=== PATIENT | female | born 1950 | race Caucasian/White ===

== ENCOUNTER 2023-11-17 15:47 | Emergency (ER) | payer MEDICARE, SELFPAY ==
[2023-11-17 15:48] VITALS: BP 110/88
[2023-11-17 15:52] VITALS: BP 110/88
[2023-11-17 15:56] VITALS: BMI 32.4
[2023-11-17 16:10] LABS: % Basophils 0.6 % (0-2); % Eosinophils 1.7 % (0-6); % Immature Granulocytes 0.3 % (0-0.5); % Monocytes 8.4 % (1.7-9.3); Absolute Basophils 0.1 10^3/uL (0-0.2); Absolute Eosinophils 0.2 10^3/uL (0-0.7); Absolute Lymphocytes 4.2 10^3/uL (1.2-3.4); Absolute Neutrophils 6.1 10^3/uL (1.4-6.5); Hematocrit 43.9 % (37.0-47.0); Hemoglobin 14.2 g/dL (12.0-16.0); Mean Corp Hgb Conc. 32.3 g/dL (33.0-37.0); Mean Corpuscular Hgb 26.9 pg (27.0-31.0); Mean Corpuscular Volume 83.3 fL (81.0-99.0); Mean Platelet Volume 10.3 fL (7.4-10.4); Nucleated Red Blood Cells % 0 %; Platelet Count 306 10^3/uL (130-400); Red Blood Cell Count 5.27 10^6/uL (4.20-5.40); Red Cell Dist. Width 13.2 % (11.5-14.5); White Blood Cell Count 11.6 10^3/uL (4.8-10.8)
--- NOTE | 2023-11-17 16:10 | ED.GENMED ---
History of Present Illness
General
Chief Complaint: Heart Rate Problem
Time Seen by Provider: 11/17/23 15:54
Travel History
Have you had any contact with someone who has COVID-19?: No
Do you have any symptoms of coronavirus? Fever > 100 degrees, chills, cough, shortness of breath, sore throat, loss of taste or smell, muscle aches, or headache?: No
History of Present Illness
History of Present Illness:
73-year-old female with history of hypertension and COPD presents to the emergency department for evaluation of sudden onset dizziness and heart palpitations beginning earlier today. She states she was seated on a phone call with family when the
symptoms began. She promptly called 911 and was identified to be in a narrow complex tachycardia by EMS. She was given initial dose of 6 mg of adenosine followed by 12 mg of adenosine with termination of the SVT. Patient does report 'hoarseness'
as well as mild dizziness currently. No history of cardiac dysrhythmias. Denies any recent medication changes or illicit substance use.
Past History
Past History
ED Past Medical History: Asthma, Cancer (Lung CA), COPD, GERD, HTN, NIDDM and Other (Trigeminal neuralgia, PNA, UTi)
ED Past Surgical History: Appendectomy, Cholecystectomy, Gynecological (Oophorectomy, Tubal) and Other (right upper lobe removed)
Social History
Tobacco: Former smoker
Alcohol: None
Personal:
Living: alone
Review of Systems
Review of Systems
Allergies reviewed?: Yes
All Other Systems: ROS reviewed and negative except as documented in HPI and ROS
Phy Exam
Physical Exam
Physical Exam:
GEN: Well appearing, NAD, WDWN
Eyes: PERRLA, EOMs intact, no scleral icterus
HENT: NCAT, oral mucosa moist, no JVD, no cervical adenopathy.
Lungs: Expiratory wheezing heard throughout all lung jain, no prolonged expiratory phase, no rales or rhonchi, normal respiratory effort
Cardiac: Mildly tachycardic, regular, no murmurs
Abdomen: S, NT, ND, NABS, no masses or hepatosplenomegaly
Neuro: AO x 3
MSK: No gross deformity or ecchymosis. No edema. No digital clubbing
Skin: No rashes, petechiae. Normal color, no pallor or jaundice.
Psych: Calm, cooperative, proper hygiene
Course
Orders/Labs/Results
Orders:
Orders
11/17/23 15:59
Complete Blood Count/With Diff Urgent
Comprehensive Metabolic Panel Urgent
Magnesium Urgent
Comment: ADD ON
11/17/23 16:10
Add On- LAB Urgent
Tests Added?: magnesium, TSH w reflex
11/17/23 16:12
Electrocardiogram (*1) Urgent
Reason for Study: Shortness of Breath
EKG- Treatment ONCE
11/17/23 18:02
CR Chest - 2 Views Urgent
Comment:
Reason For Exam: tachycardia
Abnormal Lab Results
11/17/23
15:59
WBC 11.6 H 10^3/uL
(4.8-10.8)
MCH 26.9 L pg
(27.0-31.0)
MCHC 32.3 L g/dL
(33.0-37.0)
Absolute Lymphs (auto) 4.2 H 10^3/uL
(1.2-3.4)
Absolute Monos (auto) 1.0 H 10^3/uL
(0.1-0.6)
Glucose 174 H mg/dl
(70-99)
Total Bilirubin 1.4 H mg/dl
(0.2-1.3)
11/17/23 15:59
11/17/23 15:59
Vital Signs
Initial and Last Documented VS:
Initial Vital Signs
Temp Pulse Resp BP Pulse Ox
98.3 F 114 29 110/88 98
11/17/23 15:48 11/17/23 15:48 11/17/23 15:48 11/17/23 15:48 11/17/23 15:48
Last Documented Vital Signs
Temp Pulse Resp BP Pulse Ox
98.3 F 90 29 115/56 99
11/17/23 15:48 11/17/23 19:00 11/17/23 19:00 11/17/23 19:00 11/17/23 18:55
MDM/Problems Addressed
MDM/Problems Addressed:
73-year-old female presents to the emergency department with dizziness and heart palpitations. She was found to be in a narrow complex tachycardia by EMS. My interpretation of this is suspicious for an SVT as it is quite regular however given the
fast rate it cannot be clearly discerned from a rapid 2-1 atrial flutter. The arrhythmia seem to terminate with adenosine. At this time given that does not clearly suggest an atrial fibrillation I do not feel it is appropriate to initiate
anticoagulants for this patient. She remained free of any further arrhythmias in the emergency department. Recommend outpatient cardiology follow-up
Comment
Comment:
Initial EKG independently interpreted by me shows sinus tachycardia with no ST changes concerning for ischemia, patient motion artifact limits interpretation
*Critical Care Note
Total Time (30-74mins, 75-104mins- exclusive of procedures): Not Applicable
ED Attending Note
-
Portions of this chart may have been created with voice recognition software.� Occasional wrong word or��sound alike� substitutions may have occurred due to the inherent limitations of voice recognition software.
Discharge Plan
Departure
Patient Disposition: Home (Routine Discharge)
Date of Disposition: 11/17/23
Time of Disposition: 18:48
Patient with high blood pressure during this ER visit?: No
Discharge Problem:
Paroxysmal supraventricular tachycardia
Instructions: Supraventricular tachycardia (SVT)
Prescriptions:
No Action
losartan 50 mg tablet
25 mg PO DAILY
cetirizine 10 mg tablet
10 mg PO HS PRN (Reason: ALLERGIES)
metoprolol succinate 50 mg tablet extended release 24 hr
50 mg PO DAILY
levothyroxine 50 mcg tablet
50 mcg PO DAILY
azelastine 137 mcg (0.1 %) aerosol,spray
1 spray INTRANASAL HS PRN (Reason: congestion)
albuterol sulfate 90 mcg/actuation HFA aerosol inhaler
2 puff INHALATION R Q6 PRN (Reason: sob/wheezing)
fluticasone propionate 50 mcg/actuation spray,suspension
2 spray INTRANASAL HS PRN (Reason: Allergies)
multivitamin Tablet
1 tab PO DAILY
cyanocobalamin (vitamin B-12) 1,000 mcg/mL Solution
1,000 mcg IM MONTHLY
estradiol 0.01 % (0.1 mg/gram) cream
2 g VAGINAL .3X WEEKLY
diazepam 5 mg tablet
5 mg PO HS PRN (Reason: anxiety/sleep)
Patient Comments:
11/17/2023: last filled 06/08/23, 30 tabs for 30 days from [facility]#[id number]
coenzyme Q10 [Co Q-10] 100 mg Capsule
100 mg PO DAILY
Victoza 2-Matthew 0.6 mg/0.1 mL (18 mg/3 mL) Pen Injector
1.2 mg SC DAILY Qty: 0
rizatriptan 10 mg tablet,disintegrating
10 mg PO PRN PRN (Reason: onset of headache)
glimepiride 4 mg tablet
4 mg PO DAILY
rosuvastatin 10 mg tablet
10 mg PO HS
duloxetine 20 mg capsule,delayed release(DR/EC)
20 mg PO DAILY
cholecalciferol (vitamin D3) [Vitamin D3] 25 mcg (1,000 unit) Tablet
25 mcg PO DAILY
pantoprazole [Protonix] 40 mg tablet,delayed release (DR/EC)
40 mg PO HS
Incruse Ellipta 62.5 mcg/actuation blister with device
1 inh inhalation R HS
Referrals:
Zuhair Fagan MD [Family Provider] -
Andrew Serrano MD [Active] -
Activity Restrictions/Additional Instructions:
Your EKG taken by the paramedics is suggestive of SVT. We cannot determine definitively that this was not atrial fibrillation
Please follow up with cardiology. At this time there is no need for any new medications given that you already taken metoprolol
Interventions
Interventions:
*Risk Screen - Suicide Last Done: 11/17/23 15:48
*General Assessment Last Done: 11/17/23 15:48
*Neglect/Abuse Screening Last Done: 11/17/23 15:48
ED- Fall Risk Assessment Last Done: 11/17/23 16:05
*ED COVID-19 Vaccine History Last Done: 11/17/23 15:48
*Nursing Disposition Last Done: 11/17/23 19:27
ED- Cardiac Assessment Last Done: 11/17/23 16:05
ED- Pulmonary Assessment Last Done: 11/17/23 16:05
Discharge Date and Time
Discharge Date/Time: 11/17/23 19:34
[2023-11-17 16:21] LABS: ALT (SGPT) 24 U/L (0-35); AST (SGOT) 32 U/L (14-36); Albumin 4.1 g/dl (3.5-5.0); Alkaline Phosphatase 59 U/L (38-126); Blood Urea Nitrogen 14 mg/dl (7-17); Calcium 9.9 mg/dl (8.4-10.2); Carbon Dioxide 27 mmol/L (22-30); Chloride 101 mmol/L (98-107); Estimated Creatinine Clearance 83 ml/min; Glucose 174 mg/dl (70-99); Potassium 4.1 mmol/L (3.5-5.1); Sodium 138 mmol/L (135-145); Total Bilirubin 1.4 mg/dl (0.2-1.3); Total Protein 6.7 g/dl (6.3-8.2); eGFR > 60.00
[2023-11-17 16:37] LABS: Magnesium 1.8 mg/dl (1.6-2.3)
[2023-11-17 17:00] VITALS: BP 105/73
[2023-11-17 18:35] VITALS: BP 97/63
[2023-11-17 19:00] VITALS: BP 115/56
== END 2023-11-17 19:34 | disposition home or self-care (01) ==
LOC: EMR 15:47
PROVIDERS: Physician Assistant; EMERGENCY PHYSICIAN Student in an Organized Health Care Education/Training Program; FAMILY PHYSICIAN Internal Medicine
DX: I47.19 Other supraventricular tachycardia (principal); Z87.891 Personal history of nicotine dependence
CPT/HCPCS: 99285; 71046; 80053; 83735; 85025; 93005

== ENCOUNTER → 2024-02-15 | Outpatient (REF) | payer MEDICARE, SELFPAY | LOC: DHSLP | PROVIDERS: ATTENDING PHYSICIAN Internal Medicine Critical Care Medicine; FAMILY PHYSICIAN Internal Medicine | DX: G47.33 Obstructive sleep apnea (adult) (pediatric) (principal) | CPT/HCPCS: 95800 ==

== ENCOUNTER 2024-05-15 02:16 | Emergency (ER) | payer MEDICARE, SELFPAY ==
[2024-05-15 02:16] VITALS: BMI 31.3
[2024-05-15 02:19] VITALS: BP 164/82
[2024-05-15 03:06] VITALS: BP 153/77
--- NOTE | 2024-05-15 03:10 | ED.GENMED ---
History of Present Illness
General
Chief Complaint: Breathing Problem
Source: patient
Exam Limitations: none
Time Seen by Provider: 05/15/24 02:44
Nursing documentation reviewed up to this point in time: agreed with
History of Present Illness
History of Present Illness:
This is a 73-year-old woman who resides at home, alone. She has history of COPD, hypertension, own-qjpeqqe-setmxirqu diabetes, GERD, hyperlipidemia, hypothyroidism, anxiety as well as UTIs.
She has history of recent COVID URI with onset of symptoms mid April. She tested positive for COVID-19 May 02 and at that time had had ongoing symptoms for 5 to 6 days. She has noted a continued cough, overall improving during the day but
continues with cough most noted at nighttime when she lies down associated with a sense of mucus in the back of her throat which then causes a sense of panic/anxiety and difficulty sleeping. Nocturnal cough, mucus, shortness of breath and anxiety
has worsened over the past 3 days. She has not had a fever, no leg pain or swelling, no palpitations, no nausea nor vomiting, no dizziness nor lightheadedness.
She did note some right sided chest discomfort a few days ago and mentioned this to her terrazzo installer during brief office visit May 10. That right sided chest discomfort has since resolved.
She presented to urgent care on Tuesday, May 13 with UTI symptoms, diagnosed with a UTI and was started on Macrobid May 13.
She is unsure if Macrobid is cause for her symptoms however does admit that cough, shortness of breath at nighttime began prior to initiation of Macrobid. She has not had a rash nor itching and admits to feeling improved during the day.
She does have a history of obstructive sleep apnea, she states sleep study showed moderate obstructive sleep apnea but has yet to initiate CPAP treatment.
She has been using her nebulizer treatment at nighttime as well as Mucinex without relief.
Home medications include: Incruse Ellipta, Victoza, glimepiride, Protonix, vaginal estradiol cream, metformin, levothyroxine, metoprolol succinate, duloxetine, losartan, DuoNeb nebulizer, as needed meclizine, vitamin D. Macrobid began May 13
5-day course.
Past History
Past History
ED Past Medical History: Asthma, Cancer (Lung CA-carcinoid, right upper lobe resection), COPD, GERD, HTN, NIDDM and Other (Trigeminal neuralgia, PNA, UTi)
ED Past Surgical History: Appendectomy, Bowel resection (Sigmoidectomy), Cholecystectomy, Gynecological (Oophorectomy, Tubal) and Other (right upper lobe removed)
Social History
Tobacco: Former smoker
Alcohol: None
Personal:
Living: alone
Employment: Retired
Family History
Family History: Other (Noncontributory)
Review of Systems
Review of Systems
Constitutional: Reports sleep disturbance; Denies fever, weight gain or weight loss
EENT: Reports other (Nasal congestion, postnasal drip most noted at nighttime); Denies sore throat
Respiratory: Reports cough and trouble breathing
Cardiac: Denies diaphoresis, palpitations or syncope
ABD/GI: Reports abdominal pain (Chronic generalized upper abdominal pain, and ongoing issue status post sigmoidectomy, unchanged.); Denies nausea, vomiting, diarrhea or constipated
: Reports other (Recent UTI diagnosed a temper first, UTI symptoms have resolved); Denies dysuria, frequency, flank pain or urgency
Musculoskeletal: Denies neck pain or back pain
Skin: Denies rash
Neurological: Denies headache
Psychiatric: Reports anxiety; Denies depression, suicidal or hallucinations
Phy Exam
Physical Exam
Physical Exam:
GENERAL: 73-year-old woman appears her stated age, awake and alert, pleasant, mildly anxious but easily communicative. Lying Semi-M[employer]artney's on stretcher. No cough appreciated during exam. No respiratory distress. Able to speak in full sentences.
EYE: anicteric
NECK: Supple, nontender, no meningismus, no significant adenopathy.
ENT: posterior pharynx is without injection, scant clear postnasal drip is noted, oral mucosa is moist. TM clear b/l, nares with mildly boggy pale blue turbinates with mild clear rhinorrhea.
CARDIAC: Regular rate and rhythm. no murmur.
LUNGS: no acute respiratory distress, few scattered end expiratory wheezes most noted with forced expiration. Otherwise clear to auscultation.
ABDOMEN: Rotund, soft, nondistended, minimal tenderness generalized to the upper abdomen with deep palpation only, no r/g, no cvat. normoactive BS.
NEUROLOGICAL: Alert and oriented x3, no focal neuro deficits. Gait is steady.
SKIN: Warm and dry, normal color, skin intact. No rash.
MUSCULOSKELETAL: No C/C/E. peripheral pulses are full and equal b/l. No palpable tenderness.
PSYCH: Normal and appropriate interaction.
Scores
Heart Failure Risk
Heart Failure Risk Score: Yes
History of Stroke or TIA: No
History of intubation for respiratory distress: No
Heart rate on ED arrival >/= 110: No
SaO2 <90% on arrival on room air: No
HR >/=110 during 3min walk test (or too ill to perform test): No
ECG has acute ischemic changes: No
Urea >/=12mmol/L (BUN 33.6mg/dL): No
Serum CO2>/=35mmol/L: No
Troponin I or T elevated to [place] Level (0.4mg/dL): No
NT-proBNP >/=5,000ng/L (5,000pg/ml): No
HF Risk Score: 0
Admission Status: LOW RISK 2.8% Consider discharge to home with f/u visit to PCP/Hot Knife Cutter
Course
Orders/Labs/Results
Orders:
Orders
05/15/24 02:50
Electrocardiogram (*1) Urgent
Reason for Study: Other
Other Reason for Exam: Respiratory Distress
Cardiac Monitoring- Treatment ONCE
EKG- Treatment ONCE
IV Insert/Care/Rem.- Treatment PRN
CR Chest - 2 Views Urgent
Comment:
Reason For Exam: respiratory distress
Pulse Ox/cont/shift [RESP] Urgent
Quantity: 1
Special Instructions: continuous pulse ox
05/15/24 02:52
Complete Blood Count/With Diff Urgent
Comprehensive Metabolic Panel Urgent
05/15/24 03:02
D-Dimer Urgent
NT-proBNP Urgent
Troponin I Urgent
05/15/24 04:04
Ipratropium/Albuterol Sulfate [Duoneb] 3 ml .ROUTE .STK-MED ONE
05/15/24 04:06
Ipratropium/Albuterol Sulfate [Duoneb] 3 ml INH R NOW ONE
05/15/24 04:39
CT Chest Pe Study Urgent
Comment:
Reason For Exam: SOB, elevated d-dimer
05/15/24 04:47
Lorazepam [Ativan] 0.5 mg IV NOW STA
05/15/24 05:57
Dexamethasone Sod Phosphate [Decadron] 10 mg IV NOW STA
Abnormal Lab Results
05/15/24 05/15/24
02:52 03:02
RBC 4.19 L 10^6/uL
(4.20-5.40)
Hgb 10.7 L g/dL
(12.0-16.0)
Hct 32.8 L %
(37.0-47.0)
MCV 78.3 L fL
(81.0-99.0)
MCH 25.5 L pg
(27.0-31.0)
MCHC 32.6 L g/dL
(33.0-37.0)
Absolute Monos (auto) 0.8 H 10^3/uL
(0.1-0.6)
D-Dimer 0.61 H ug/mlFEU
(0.00-0.50)
Creatinine 0.5 L mg/dL
(0.6-1.0)
Glucose 180 H mg/dl
(70-99)
AST 40 H U/L
(14-36)
05/15/24 02:52
05/15/24 02:52
Vital Signs
Initial and Last Documented VS:
Initial Vital Signs
Temp Pulse Resp BP Pulse Ox
98.1 F 85 20 164/82 99
05/15/24 02:19 05/15/24 02:19 05/15/24 02:19 05/15/24 02:19 05/15/24 02:19
Last Documented Vital Signs
Temp Pulse Resp BP Pulse Ox
98.1 F 85 17 153/77 98
05/15/24 02:19 05/15/24 04:30 05/15/24 04:30 05/15/24 03:06 05/15/24 04:30
MDM/Problems Addressed
Differential Diagnosis Includes:
Concern for exacerbation of COPD, persistent cough status post COVID URI 2-1/2 weeks ago. Concern for CHF, ACS.
With recent COVID URI must also consider PE as well.
Will check labs including troponin, BNP, D-dimer. Will check EKG.
Will consider imaging depending on results.
Chronic conditions affecting care: DM, HTN, COPD, Previous abdomnial surgery and Psychiatric illness (History of anxiety)
*Pulse Oximetry
Patient hypoxic: no
*EKG
Interpreted by ED Provider?: Yes
Interpretation: normal
Comparison EKG: no changes (Unchanged from previous November 2023 save her heart rate has decreased from 114 to now 80.)
Rate: normal
Rhythm: sinus
[place]: normal axis
Interval: normal interval
QRS Pattern: normal QRS
Ischemia: no ischemia
*Quilting Machine Operator Interpretation
Rate: normal
Interpretation: normal
Rhythm: sinus
*Critical Care Note
Total Time (30-74mins, 75-104mins- exclusive of procedures): Not Applicable
Update Note
Update Note:
05/15/2024 0448 AM
Patient continues with moderate anxiety which she admits has been an ongoing issue as well as chronic issue with difficulty sleeping.
Had been previously prescribed Valium from prior family doctor but last prescription was a year ago.
Labs thus far reveal normal white blood cell count, mild anemia, unremarkable chemistries save for random glucose 180. Troponin is negative. BNP is unremarkable at 425.
D-dimer mildly elevated at 0.61. With complaints of dyspnea, intermittent right chest discomfort will check CT of the chest/PE study.
Will give an IV dose of Ativan for anxiety.
She continues to have no significant respiratory distress, no significant cough, pulse ox is normal.
She is requesting her prescription for a sleep aid but I have recommended she follow-up with the PCP did discuss ongoing sleep difficulty. I do suspect she may have a mild exacerbation of COPD with recent COVID URI and may need a short course of
oral steroids. As far as sleep medication recommend she follow-up with the PCP and she states she has an appointment with a new PCP in the future.
05/15/2024 0601 AM
CAT scan shows no evidence of PE. Mild peripheral groundglass opacity concerning for inflammatory versus atypical infectious process. This could be related to recent COVID-19 URI. She remains afebrile. Normal white blood cell count.
Resting comfortably after small IV dose of Ativan.
Will treat exacerbation of COPD with short course of prednisone and recommend she continue her albuterol nebulizer every 4 hours as needed.
Recommend humidifier or vaporizer at nighttime, elevating head of bed, can continue Mucinex as needed for cough as well.
Patient has known obstructive sleep apnea and chronic issues with insomnia and she has been urged to follow-up with her terrazzo installer for further evaluation of her sleep issues and obstructive sleep apnea. She has been resistant to CPAP but I have
encouraged her to reconsider this.
Recommend she follow-up with her new PCP as already planned as well.
ED Attending Note
-
Portions of this chart may have been created with voice recognition software.� Occasional wrong word or��sound alike� substitutions may have occurred due to the inherent limitations of voice recognition software.
Discharge Plan
Departure
Patient Disposition: Home (Routine Discharge)
Date of Disposition: 05/15/24
Time of Disposition: 05:59
Patient with high blood pressure during this ER visit?: No
Condition: Good
Discharge Problem:
Acute exacerbation of chronic obstructive pulmonary disease, Recent covid 19 URI, EYAL (obstructive sleep apnea), Chronic insomnia
Instructions: Sleep apnea in adults, Insomnia, Chronic obstructive pulmonary disease (COPD), Good sleep hygiene
Prescriptions:
New
prednisone 20 mg tablet
40 mg PO DAILY Qty: 10 0RF
No Action
losartan 50 mg tablet
25 mg PO DAILY
cetirizine 10 mg tablet
10 mg PO HS PRN (Reason: ALLERGIES)
metoprolol succinate 50 mg tablet extended release 24 hr
50 mg PO DAILY
levothyroxine 50 mcg tablet
50 mcg PO DAILY
azelastine 137 mcg (0.1 %) aerosol,spray
1 spray INTRANASAL HS PRN (Reason: congestion)
albuterol sulfate 90 mcg/actuation HFA aerosol inhaler
2 puff INHALATION R Q6 PRN (Reason: sob/wheezing)
fluticasone propionate 50 mcg/actuation spray,suspension
2 spray INTRANASAL HS PRN (Reason: Allergies)
multivitamin Tablet
1 tab PO DAILY
cyanocobalamin (vitamin B-12) 1,000 mcg/mL Solution
1,000 mcg IM MONTHLY
estradiol 0.01 % (0.1 mg/gram) cream
2 g VAGINAL .3X WEEKLY
diazepam 5 mg tablet
5 mg PO HS PRN (Reason: anxiety/sleep)
Patient Comments:
11/17/2023: last filled 06/08/23, 30 tabs for 30 days from [facility]#[id number]
coenzyme Q10 [Co Q-10] 100 mg Capsule
100 mg PO DAILY
Victoza 2-Matthew 0.6 mg/0.1 mL (18 mg/3 mL) Pen Injector
1.2 mg SC DAILY Qty: 0
rizatriptan 10 mg tablet,disintegrating
10 mg PO PRN PRN (Reason: onset of headache)
glimepiride 4 mg tablet
4 mg PO DAILY
rosuvastatin 10 mg tablet
10 mg PO HS
duloxetine 20 mg capsule,delayed release(DR/EC)
20 mg PO DAILY
cholecalciferol (vitamin D3) [Vitamin D3] 25 mcg (1,000 unit) Tablet
25 mcg PO DAILY
pantoprazole [Protonix] 40 mg tablet,delayed release (DR/EC)
40 mg PO HS
Incruse Ellipta 62.5 mcg/actuation blister with device
1 inh inhalation R HS
Referrals:
Diogenes Gant MD [Active] - Call in 1-3 days for appt
Kingsley Goetz MD [Family Provider] - Call in 1-3 days for appt
Interventions
Interventions:
*Risk Screen - Suicide Last Done: 05/15/24 02:19
*General Assessment Last Done: 05/15/24 02:19
*Neglect/Abuse Screening Last Done: 05/15/24 02:19
ED- Fall Risk Assessment Last Done: 05/15/24 02:19
*ED COVID-19 Vaccine History Last Done: 05/15/24 02:19
ED- Cardiac Assessment Last Done: 05/15/24 02:59
ED- Pulmonary Assessment Last Done: 05/15/24 02:59
Discharge Date and Time
Print Language: FRENCH
[2024-05-15 03:18] LABS: % Basophils 0.3 % (0-2); % Eosinophils 2.4 % (0-6); % Immature Granulocytes 0.5 % (0-0.5); % Lymphocytes 24.5 % (20.5-51.1); % Monocytes 9.3 % (1.7-9.3); Absolute Eosinophils 0.2 10^3/uL (0-0.7); Absolute Lymphocytes 2.1 10^3/uL (1.2-3.4); Absolute Monocytes 0.8 10^3/uL (0.1-0.6); Absolute Neutrophils 5.5 10^3/uL (1.4-6.5); Hematocrit 32.8 % (37.0-47.0); Hemoglobin 10.7 g/dL (12.0-16.0); Mean Corp Hgb Conc. 32.6 g/dL (33.0-37.0); Mean Corpuscular Hgb 25.5 pg (27.0-31.0); Mean Corpuscular Volume 78.3 fL (81.0-99.0); Mean Platelet Volume 10.1 fL (7.4-10.4); Nucleated Red Blood Cells % 0 %; Platelet Count 318 10^3/uL (130-400); Red Blood Cell Count 4.19 10^6/uL (4.20-5.40); White Blood Cell Count 8.8 10^3/uL (4.8-10.8)
[2024-05-15 03:30] LABS: ALT (SGPT) 31 U/L (0-35); AST (SGOT) 40 U/L (14-36); Albumin 3.8 g/dl (3.5-5.0); Alkaline Phosphatase 70 U/L (38-126); Blood Urea Nitrogen 9 mg/dl (7-17); Calcium 9.8 mg/dl (8.4-10.2); Carbon Dioxide 26 mmol/L (22-30); Chloride 104 mmol/L (98-107); Estimated Creatinine Clearance 95 ml/min; Glucose 180 mg/dl (70-99); Potassium 4.6 mmol/L (3.5-5.1); Sodium 142 mmol/L (135-145); Total Bilirubin 0.8 mg/dl (0.2-1.3); Total Protein 6.3 g/dl (6.3-8.2); eGFR > 60.00
[2024-05-15 03:40] LABS: NT-proBNP 425 pg/ml; Troponin I < 0.012 ng/ml
[2024-05-15 03:58] LABS: D-Dimer 0.61 ug/mlFEU (0.00-0.50)
[2024-05-15] MEDS: DUONEB 3 ML INH (04:06)
[2024-05-15] MEDS: ATIVAN 0.5 MG IV (04:58)
[2024-05-15 05:19] VITALS: BP 124/72
--- NOTE | 2024-05-15 05:30 | EDRN ---
After ativan was given, pt. fell asleep. When asleep, pt.'s pulse ox. dropped to 85% on RA, when awoken by RN, pt.'s pulse ox. rises to 97% on RA. When awake, pt. is not hypoxic. Pt. states, 'I know I have sleep apnea. I need one of those bipap
masks, but I have not followed up because I won't use that.'. RN encouraged pt. to follow up w/ primary/dyeing machine back tender, reviewed risks of sleep apnea. Pt. vocalized understanding.
[2024-05-15] MEDS: DECADRON 10 MG IV (06:19)
[2024-05-15 06:25] VITALS: BP 118/70
== END 2024-05-15 07:04 | disposition home or self-care (01) ==
LOC: EMR 02:16
PROVIDERS: EMERGENCY PHYSICIAN Emergency Medicine; FAMILY PHYSICIAN Student in an Organized Health Care Education/Training Program
DX: J44.1 Chronic obstructive pulmonary disease with (acute) exacerbation (principal); J06.9 Acute upper respiratory infection, unspecified; G47.33 Obstructive sleep apnea (adult) (pediatric); F51.04 Psychophysiologic insomnia; F41.9 Anxiety disorder, unspecified; I10 Essential (primary) hypertension; E11.9 Type 2 diabetes mellitus without complications; K21.9 Gastro-esophageal reflux disease without esophagitis; E78.5 Hyperlipidemia, unspecified; E03.9 Hypothyroidism, unspecified; K57.90 Diverticulosis of intestine, part unspecified, without perforation or abscess without bleeding; M19.90 Unspecified osteoarthritis, unspecified site; G50.0 Trigeminal neuralgia; Z79.84 Long term (current) use of oral hypoglycemic drugs; Z87.440 Personal history of urinary (tract) infections; Z86.16 Personal history of COVID-19; Z85.118 Personal history of other malignant neoplasm of bronchus and lung; Z87.891 Personal history of nicotine dependence; Z87.01 Personal history of pneumonia (recurrent); Z90.2 Acquired absence of lung [part of]; Z90.49 Acquired absence of other specified parts of digestive tract; Z98.0 Intestinal bypass and anastomosis status
CPT/HCPCS: 99285; 94640; 96374; 96375; 71046; 71275; 80053; 83880; 84484; 85025; 85379; 93005; Q9967

== ENCOUNTER → 2024-10-17 10:14 | Outpatient (REF) | payer MEDICARE, SELFPAY | LOC: RCS 10:14 | PROVIDERS: ATTENDING PHYSICIAN Student in an Organized Health Care Education/Training Program; REFERRING PHYSICIAN Internal Medicine Cardiovascular Disease | DX: R00.2 Palpitations (principal) | CPT/HCPCS: 93225; 93226 ==

== ENCOUNTER → 2024-12-04 13:51 | Outpatient (REF) | payer MEDICARE, SELFPAY ==
[2024-12-04 16:02] LABS: % Basophils 0.5 % (0-2); % Eosinophils 1.9 % (0-6); % Immature Granulocytes 0.4 % (0-0.5); % Lymphocytes 32.3 % (20.5-51.1); % Monocytes 7.7 % (1.7-9.3); % Neutrophils 57.2 % (42.2-75.2); Absolute Basophils 0.1 10^3/uL (0-0.2); Absolute Eosinophils 0.2 10^3/uL (0-0.7); Absolute Lymphocytes 3.4 10^3/uL (1.2-3.4); Absolute Monocytes 0.8 10^3/uL (0.1-0.6); Absolute Neutrophils 5.9 10^3/uL (1.4-6.5); Hematocrit 43.1 % (37.0-47.0); Hemoglobin 13.9 g/dL (12.0-16.0); Mean Corp Hgb Conc. 32.3 g/dL (33.0-37.0); Mean Corpuscular Hgb 27.7 pg (27.0-31.0); Mean Corpuscular Volume 85.9 fL (81.0-99.0); Mean Platelet Volume 10.2 fL (7.4-10.4); Nucleated Red Blood Cells % 0 %; Platelet Count 257 10^3/uL (130-400); Red Blood Cell Count 5.02 10^6/uL (4.20-5.40); Red Cell Dist. Width 15.4 % (11.5-14.5); White Blood Cell Count 10.4 10^3/uL (4.8-10.8)
[2024-12-04 16:05] LABS: Ionized Calcium 1.28 mMOL/L (1.15-1.33)
[2024-12-04 16:21] LABS: Erythrocyte Sed Rate 2 mm/hour (0-20)
[2024-12-04 16:23] LABS: Calcium 10.4 mg/dl (8.4-10.2); Iron 63 ug/dl (37-170); Uric Acid 5.8 mg/dl (2.5-6.2)
[2024-12-04 16:24] LABS: C-Reactive Protein < 5.00 mg/L (0.0-10.00)
[2024-12-04 16:25] LABS: Urine Albumin Negative (Neg - Trace); Urine Bilirubin Negative (Negative); Urine Character Clear (Clear); Urine Color Yellow; Urine Glucose Negative (Negative); Urine Ketone Negative (Negative); Urine Leukocyte 1+ (Negative); Urine Nitrite Negative (Negative); Urine Occult Blood Negative (Negative); Urine Urobilinogen Negative (Neg - 1+)
[2024-12-04 16:25] LABS: Protein/creatinine Ratio 0.1; Urine Protein 7 mg/dl
[2024-12-04 16:32] LABS: Percent Saturation 18 % (20-50); Total Iron Binding Capacity 344 ug/dl (265-497)
[2024-12-04 16:32] LABS: Urine Bacteria Moderate (Negative); Urine Red Blood Cell 0-2 /HPF (0-2); Urine Squamous Cell >30 /LPF (Few)
[2024-12-04 16:34] LABS: Complement C3 145 mg/dl (88-165)
[2024-12-04 17:44] LABS: Ferritin 19.3 ng/ml (11.1-264.0)
[2024-12-05 08:54] LABS: Intact PTH 61.2 pg/ml (13.6-85.8)
[2024-12-05 10:25] LABS: Glycohemoglobin (HgbA1c) 6.8 % (4.0-5.6)
[2024-12-05 15:02] LABS: Rheumatoid Agglutinin Less Than 10 IU (<10 IU)
[2024-12-06 06:08] LABS: Thyroid Peroxidase Ab (TPO) 0.3 IU/mL (0.0-9.0)
[2024-12-06 06:22] LABS: Thyroglobulin 19.2 ng/mL (1.3-31.8); Thyroglobulin Antibodies <1.5 IU/mL (0.0-4.0)
[2024-12-06 18:29] LABS: Cardiolipin IgA Antibody <10 APL (<=11); Cardiolipin IgM Antibody <10 MPL (<=12); Cardiolipin Igg Antibody <10 GPL (<=14)
[2024-12-06 18:36] LABS: Beta-2-Glycoprotein I Ab. IgG <10 SGU (<=20); Beta-2-Glycoprotein I Ab. IgM <10 SMU (<=20)
[2024-12-06 20:20] LABS: ANA, IgG Reflex to HEp-2 None Detected (None Detected)
[2024-12-06 21:10] LABS: CCP Antibody IgG/IgA 40 Units (0-19)
[2024-12-06 22:43] LABS: SSA 52 (Ro)(ENA) Ab, IgG 3 AU/mL (0-40); SSA 60 (Ro)(ENA) Ab, IgG 0 AU/mL (0-40); SSB (La)(ENA) Ab, IgG 0 AU/mL (0-40)
== END ==
LOC: RCS 13:51
PROVIDERS: ATTENDING PHYSICIAN Internal Medicine Cardiovascular Disease; FAMILY PHYSICIAN Student in an Organized Health Care Education/Training Program; REFERRING PHYSICIAN Student in an Organized Health Care Education/Training Program
DX: R06.02 Shortness of breath (principal); I47.10 Supraventricular tachycardia, unspecified; C34.90 Malignant neoplasm of unspecified part of unspecified bronchus or lung; I62.9 Nontraumatic intracranial hemorrhage, unspecified; E07.9 Disorder of thyroid, unspecified; I73.00 Raynaud's syndrome without gangrene; K21.9 Gastro-esophageal reflux disease without esophagitis; M25.50 Pain in unspecified joint; M25.60 Stiffness of unspecified joint, not elsewhere classified; R21 Rash and other nonspecific skin eruption; R53.83 Other fatigue; R76.8 Other specified abnormal immunological findings in serum; Z82.69 Family history of other diseases of the musculoskeletal system and connective tissue; E11.9 Type 2 diabetes mellitus without complications; E61.1 Iron deficiency; E78.2 Mixed hyperlipidemia; Z51.81 Encounter for therapeutic drug level monitoring
CPT/HCPCS: 36415; 81003; 81015; 82330; 82570; 82728; 83036; 83540; 83550; 83970; 84155; 84156; 84165; 84432; 84550; 85025; 85610; 85613; 85652; 85730; 86038; 86140; 86146; 86147; 86160; 86200; 86235; 86376; 86430; 86800; 93306

== ENCOUNTER → 2024-12-07 07:48 | Outpatient (REF) | payer MEDICARE, SELFPAY ==
[2024-12-06 10:01] LABS: ALT (SGPT) 32 U/L (0-35); AST (SGOT) 32 U/L (14-36); Albumin 4.1 g/dl (3.5-5.0); Alkaline Phosphatase 68 U/L (38-126); Blood Urea Nitrogen 13 mg/dl (7-17); Calcium 10.2 mg/dl (8.4-10.2); Carbon Dioxide 30 mmol/L (22-30); Chloride 104 mmol/L (98-107); Glucose 168 mg/dl (70-99); HDL Cholesterol 38 mg/dl; Potassium 5.4 mmol/L (3.5-5.1); Sodium 140 mmol/L (135-145); Total Bilirubin 0.8 mg/dl (0.2-1.3); Total Cholesterol 227 mg/dl (50-199); Total Protein 6.8 g/dl (6.3-8.2); eGFR > 60.00
[2024-12-06 10:12] LABS: Triglyceride > 400 mg/dl (10-149)
[2024-12-06 10:37] LABS: LDL Cholesterol, Direct 113 mg/dl
== END ==
LOC: RAD 07:48
PROVIDERS: ATTENDING PHYSICIAN Student in an Organized Health Care Education/Training Program
DX: Z13.820 Encounter for screening for osteoporosis (principal)
CPT/HCPCS: 36415; 77080; 80053; 80061; 83721

== ENCOUNTER → 2024-12-12 13:59 | Outpatient (REF) | payer MEDICARE, SELFPAY | LOC: RAD 13:59 | PROVIDERS: ATTENDING PHYSICIAN Student in an Organized Health Care Education/Training Program; FAMILY PHYSICIAN Student in an Organized Health Care Education/Training Program | DX: C34.90 Malignant neoplasm of unspecified part of unspecified bronchus or lung (principal); E07.9 Disorder of thyroid, unspecified; I73.00 Raynaud's syndrome without gangrene; K21.9 Gastro-esophageal reflux disease without esophagitis; M25.50 Pain in unspecified joint; M25.60 Stiffness of unspecified joint, not elsewhere classified; R21 Rash and other nonspecific skin eruption; R53.83 Other fatigue; R76.8 Other specified abnormal immunological findings in serum; Z82.69 Family history of other diseases of the musculoskeletal system and connective tissue | CPT/HCPCS: 73110; 73120; 73610 ==

== ENCOUNTER → 2025-01-30 13:47 | Outpatient (REF) | payer MEDICARE, SELFPAY | LOC: HWRAD 13:47 | PROVIDERS: ATTENDING PHYSICIAN Student in an Organized Health Care Education/Training Program | DX: M54.2 Cervicalgia (principal) | CPT/HCPCS: 76536 ==

== ENCOUNTER → 2025-02-11 10:04 | Outpatient (REF) | payer MEDICARE, SELFPAY ==
[2025-02-11 12:50] LABS: Free T4 1.35 ng/dl (0.78-2.19)
[2025-02-11 12:56] LABS: Glycohemoglobin (HgbA1c) 7.4 % (4.0-5.6)
[2025-02-11 13:05] LABS: TSH 1.09 uIU/ml (0.47-4.68)
[2025-02-11 13:08] LABS: Blood Urea Nitrogen 11 mg/dl (7-17); Calcium 9.9 mg/dl (8.4-10.2); Carbon Dioxide 23 mmol/L (22-30); Chloride 107 mmol/L (98-107); Glucose 137 mg/dl (70-99); HDL Cholesterol 44 mg/dl; LDL Cholesterol, Calculated 95 mg/dl; Sodium 140 mmol/L (135-145); Total Cholesterol 208 mg/dl (50-199); Triglyceride 347 mg/dl (10-149); Very Low Density Lipoprotein 69 mg/dl (0-30); eGFR > 60.00
[2025-02-11 13:23] LABS: Vitamin B12 844 pg/ml (239-931)
== END ==
LOC: RCS 10:04
PROVIDERS: ATTENDING PHYSICIAN Student in an Organized Health Care Education/Training Program; FAMILY PHYSICIAN Student in an Organized Health Care Education/Training Program; OTHER PHYSICIAN Nurse Practitioner Family
DX: M25.60 Stiffness of unspecified joint, not elsewhere classified (principal); R52 Pain, unspecified; R76.8 Other specified abnormal immunological findings in serum; Z51.81 Encounter for therapeutic drug level monitoring; E11.65 Type 2 diabetes mellitus with hyperglycemia; E03.9 Hypothyroidism, unspecified
CPT/HCPCS: 36415; 80048; 80061; 82607; 83036; 84439; 84443; 93005

== ENCOUNTER → 2025-02-14 12:10 | Outpatient (REF) | payer MEDICARE, SELFPAY ==
[2025-02-14 13:06] LABS: 24 Hour Urine Total Volume 1800 ml
[2025-02-14 13:30] LABS: Microalbumin, Urine < 0.6 mg/dl (0.6-1.7)
== END ==
LOC: REG 12:10
PROVIDERS: ATTENDING PHYSICIAN Nurse Practitioner Family; FAMILY PHYSICIAN Student in an Organized Health Care Education/Training Program
DX: E11.65 Type 2 diabetes mellitus with hyperglycemia (principal); E03.9 Hypothyroidism, unspecified
CPT/HCPCS: 36415; 81050; 82043

== ENCOUNTER 2025-02-17 15:30 | Inpatient (IN) | payer MEDICARE, SELFPAY ==
[2025-02-17] VITALS (8 sets, daily range): BP systolic 98–156; BP diastolic 53–105; BMI 32.2
[2025-02-17 10:09] LABS: % Basophils 0.6 % (0-2); % Eosinophils 2.2 % (0-6); % Immature Granulocytes 0.4 % (0-0.5); % Monocytes 10.2 % (1.7-9.3); % Neutrophils 65.6 % (42.2-75.2); Absolute Basophils 0.1 10^3/uL (0-0.2); Absolute Eosinophils 0.2 10^3/uL (0-0.7); Absolute Immature Granulocytes 0.1 10^3/uL (0-0.05); Absolute Lymphocytes 2.3 10^3/uL (1.2-3.4); Absolute Monocytes 1.1 10^3/uL (0.1-0.6); Absolute Neutrophils 7.3 10^3/uL (1.4-6.5); Hemoglobin 14.1 g/dL (12.0-16.0); Mean Corp Hgb Conc. 35.3 g/dL (33.0-37.0); Mean Corpuscular Hgb 29.8 pg (27.0-31.0); Mean Corpuscular Volume 84.6 fL (81.0-99.0); Mean Platelet Volume 10.2 fL (7.4-10.4); Nucleated Red Blood Cells % 0 %; Platelet Count 221 10^3/uL (130-400); Red Blood Cell Count 4.73 10^6/uL (4.20-5.40); Red Cell Dist. Width 13.1 % (11.5-14.5); White Blood Cell Count 11.1 10^3/uL (4.8-10.8)
[2025-02-17 10:28] LABS: ALT (SGPT) 32 U/L (0-35); AST (SGOT) 28 U/L (14-36); Albumin 4.4 g/dl (3.5-5.0); Alkaline Phosphatase 60 U/L (38-126); Blood Urea Nitrogen 13 mg/dl (7-17); Calcium 10.4 mg/dl (8.4-10.2); Carbon Dioxide 22 mmol/L (22-30); Chloride 107 mmol/L (98-107); Glucose 234 mg/dl (70-99); Potassium 4.4 mmol/L (3.5-5.1); Sodium 138 mmol/L (135-145); Total Bilirubin 1.4 mg/dl (0.2-1.3); Total Protein 6.7 g/dl (6.3-8.2); eGFR > 60.00
[2025-02-17 10:38] LABS: Troponin I < 0.012 ng/ml
--- NOTE | 2025-02-17 11:48 | ED.GENMED ---
History of Present Illness
General
Chief Complaint: Breathing Problem
Source: patient
Exam Limitations: none
Time Seen by Provider: 02/17/25 11:29
History of Present Illness
History of Present Illness:
74-year-old female with history of COPD presents complaining of increased shortness of breath over the past 2 to 3 days. She also noted difficulty to breathe. Denies chest pain. No leg swelling. No fever. She denies any hemoptysis. No recent
surgery or travel. She is followed by pulmonology. She has been using her albuterol inhaler and nebulizer without significant relief.
Past History
Past History
ED Past Medical History: Asthma, Cancer (Lung CA-carcinoid, right upper lobe resection), COPD, GERD, HTN, NIDDM and Other (Trigeminal neuralgia, PNA, UTi)
ED Past Surgical History: Appendectomy, Bowel resection (Sigmoidectomy), Cholecystectomy, Gynecological (Oophorectomy, Tubal) and Other (right upper lobe removed)
Social History
Tobacco: Former smoker
Alcohol: None
Personal:
Living: alone
Employment: Retired
Family History
Family History: Other (Noncontributory)
Phy Exam
Physical Exam
Physical Exam:
General: Well-appearing female with increased work of breathing
HEENT normocephalic atraumatic
Heart: Regular rate and rhythm
Lungs: Mostly clear
Extremities: No cyanosis or edema
Skin: Warm no rash
Scores
Heart Failure Risk
Heart Failure Risk Score: Not Applicable
Course
Orders/Labs/Results
Orders:
Orders
02/17/25 09:52
Electrocardiogram (*1) Urgent
Reason for Study: Other
Other Reason for Exam: Respiratory Distress
EKG- Treatment ONCE
02/17/25 09:59
Complete Blood Count/With Diff Urgent
Comprehensive Metabolic Panel Urgent
Troponin I Urgent
02/17/25 11:37
Dexamethasone Sod Phosphate [Decadron] 10 mg IV NOW STA
Ipratropium/Albuterol Sulfate [Duoneb] 3 ml INH R NOW STA
CR Chest - 2 Views Urgent
Comment:
Reason For Exam: sob
02/17/25 14:11
COVID-19 Antigen Urgent
Source: Nasal Swab
Abnormal Lab Results
02/17/25
09:59
WBC 11.1 H 10^3/uL
(4.8-10.8)
Abs Immat Gran (auto) 0.1 H 10^3/uL
(0-0.05)
Absolute Neuts (auto) 7.3 H 10^3/uL
(1.4-6.5)
Absolute Monos (auto) 1.1 H 10^3/uL
(0.1-0.6)
Monocytes % 10.2 H %
(1.7-9.3)
Glucose 234 H mg/dl
(70-99)
Calcium 10.4 H mg/dl
(8.4-10.2)
Total Bilirubin 1.4 H mg/dl
(0.2-1.3)
02/17/25 09:59
02/17/25 09:59
Vital Signs
Initial and Last Documented VS:
Initial Vital Signs
Temp Pulse Resp BP Pulse Ox
98.3 F 101 22 156/104 99
02/17/25 09:49 02/17/25 09:49 02/17/25 09:49 02/17/25 09:49 02/17/25 09:49
Last Documented Vital Signs
Temp Pulse Resp BP Pulse Ox
98.3 F 88 19 98/84 96
02/17/25 09:49 02/17/25 13:00 02/17/25 12:30 02/17/25 13:00 02/17/25 13:00
MDM/Problems Addressed
Differential Diagnosis Includes:
Increased work of breathing with shortness of breath. Consider COPD flare versus bronchitis versus pneumonia versus heart failure
Patient is tachypneic on exam. Will try nebulizer x-ray pending labs pending steroids ordered
*Critical Care Note
Total Time (30-74mins, 75-104mins- exclusive of procedures): Not Applicable
Update Note
Update Note:
Patient reevaluated multiple times. Still with dyspnea and increased work of breathing. Chest x-ray is clear. She was placed on nasal cannula oxygen for comfort. Discussed with emergency room attending. Will admit for COPD flare
ED Attending Note
-
Portions of this chart may have been created with voice recognition software.� Occasional wrong word or��sound alike� substitutions may have occurred due to the inherent limitations of voice recognition software.
Discharge Plan
Departure
Patient Disposition: Admit
Date of Disposition: 02/17/25
Time of Disposition: 14:23
Presentation/result/management discussed w/ accepting MD/DO: Hospitalist
Discharge Problem:
Acute exacerbation of chronic obstructive pulmonary disease (COPD)
Prescriptions:
No Action
losartan 50 mg tablet
25 mg PO DAILY
cetirizine 10 mg tablet
10 mg PO HS PRN (Reason: ALLERGIES)
metoprolol succinate 50 mg tablet extended release 24 hr
50 mg PO DAILY
levothyroxine 50 mcg tablet
50 mcg PO DAILY
azelastine 137 mcg (0.1 %) aerosol,spray
1 spray INTRANASAL HS PRN (Reason: congestion)
albuterol sulfate 90 mcg/actuation HFA aerosol inhaler
2 puff INHALATION R Q6 PRN (Reason: sob/wheezing)
fluticasone propionate 50 mcg/actuation spray,suspension
2 spray INTRANASAL HS PRN (Reason: Allergies)
multivitamin Tablet
1 tab PO DAILY
cyanocobalamin (vitamin B-12) 1,000 mcg/mL Solution
1,000 mcg IM MONTHLY
estradiol 0.01 % (0.1 mg/gram) cream
2 g VAGINAL .3X WEEKLY
diazepam 5 mg tablet
5 mg PO HS PRN (Reason: anxiety/sleep)
Patient Comments:
11/17/2023: last filled 06/08/23, 30 tabs for 30 days from [id number]
coenzyme Q10 [Co Q-10] 100 mg Capsule
100 mg PO DAILY
Victoza 2-Matthew 0.6 mg/0.1 mL (18 mg/3 mL) Pen Injector
1.2 mg SC DAILY Qty: 0
rizatriptan 10 mg tablet,disintegrating
10 mg PO PRN PRN (Reason: onset of headache)
glimepiride 4 mg tablet
4 mg PO DAILY
rosuvastatin 10 mg tablet
10 mg PO HS
duloxetine 20 mg capsule,delayed release(DR/EC)
20 mg PO DAILY
cholecalciferol (vitamin D3) [Vitamin D3] 25 mcg (1,000 unit) Tablet
25 mcg PO DAILY
pantoprazole [Protonix] 40 mg tablet,delayed release (DR/EC)
40 mg PO HS
Incruse Ellipta 62.5 mcg/actuation blister with device
1 inh inhalation R HS
prednisone 20 mg tablet
40 mg PO DAILY Qty: 10 0RF
Referrals:
Kingsley Goetz MD [Family Provider, Family Practice]
Interventions
Interventions:
*Risk Screen - Suicide Last Done: 02/17/25 09:49
*General Assessment Last Done: 02/17/25 12:13
*Neglect/Abuse Screening Last Done: 02/17/25 09:49
*ED COVID-19 Vaccine History Last Done: 02/17/25 12:13
ED- Cardiac Assessment Last Done: 02/17/25 12:13
ED- Pulmonary Assessment Last Done: 02/17/25 12:13
Discharge Date and Time
Print Language: BELARUSIAN
[2025-02-17] MEDS: DUONEB 3 ML INH ×2 (12:15→20:10)
[2025-02-17] MEDS: DECADRON 10 MG IV (12:16)
--- NOTE | 2025-02-17 14:47 | W.PN.UPDATE ---
Update Note
Progress Note Update
This note serves as an addendum to the H&P by see supervisor JENELLE Danielle SORIANO
HPI
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
- shortness of breath over the past 2 to 3 days
She has been using her albuterol inhaler and nebulizer without significant relief.
- Denies chest pain. No leg swelling. No fever.
- denies any hemoptysis.
- No recent surgery or travel.
- followed by pulmonology.
Vital Signs
Temp Pulse Resp BP Pulse Ox
98.3 F 88 19 98/84 98
02/17/25 09:49 02/17/25 13:00 02/17/25 12:30 02/17/25 13:00 02/17/25 14:05
PE
Gen: anxious
HEENT: anicteric
Neck:supple neck. No JVD
Lungs: symmetric AE, BBS at Lt lung base , No wheeze
Cor: RRR S1 S2
Abdomen: soft benign
SIGN FABRICATOR: AAO3 NFND
MS:no edema
Psych: anxious but apprpriate
Admission Labs
02/17/25
09:59
WBC 11.1 H
Creatinine 0.6
eGFR > 60.00
Glucose 234 H
Calcium 10.4 H
Total Bilirubin 1.4 H
Troponin I < 0.012
CXR
No acute cardiopulmonary process
EKG
NORMAL SINUS RHYTHM
NONSPECIFIC T WAVE ABNORMALITY
ABNORMAL ECG
WHEN COMPARED WITH ECG OF 11-FEB-2025 10:29,
NO SIGNIFICANT CHANGE WAS FOUND
Confirmed by OLIVA NOVAK, DESMOND ([id number]) on 02/17/2025 1:59:01 PM
05/15/24 CT Chest PEStudy
- Examination is negative for pulmonary embolism.
- Patchy groundglass opacities within both lungs, which is most likely patchy pneumonia.
Given the clinical history and the appearance, this is most likely Covid pneumonia.
No evidence for associated pleural effusion.
- Mild to moderate elevation right hemidiaphragm.
- 4 mm subpleural nodule in the lateral right mid lung, stable, compatible with a benign pulmonary nodule.
- Status post partial right lung resection which appears to be right upper lobectomy.
- Stable 3 cm mass arising from the right adrenal gland, compatible with myelolipoma.
Last hospitalist admission: 12/13/23 - 01/06/24
Discharge Diagnosis/Procedures: Shortness of breath, ACUTE suspected chronic obstructive pulmonary disease exacerbation, Acute Bronchitis 2/2 above
ASSESSMENT & PLAN
Pending Rx reconciliation
Likely AE COPD with asthmatic element in view of more dyspneic than usual
No wheeze on my exam
Mild Leucocytosis but doubt bacterial infection
NEG Covid
NEG CXR
HX Asthma/COPD
Former smoker since 2003
HX s/p right upper lobectomy for right lung carcinoid tumor in 2003
- agree with IV Decadron 4mg q12h
- DuoNebs qid and PRN
- Hold ABx
- f/u POx
At risk for hyperglycemia due to IV Steroids
T2DM
- add ISS
- on Glimepiride
- on Liraglutide
Benign HTN
- Losartan, metoprolol
Hypothyroid
- LT4
HLD
- on Rosuvastatin
Anxiety/depression
- Duloxetine
HX RA
- recently started on Hydroxy chloroquine
HX 3cm mass Rt adrenal gland ; known per patient and no interval chage
DVT Px: SQH
Full code
IP TLM
[2025-02-17 14:52] LABS: COVID-19 Antigen Negative (Negative)
--- NOTE | 2025-02-17 15:14 | HPS.HSE ---
Family Physician
-
Family Physician: Kingsley Goetz MD
Chief Complaint
-
Cough and Shortness of Breath
History of Present Illness
Patient is a 74 y/o female past medical history of COPD, Diabetes, Hypertension, Hyperlipidemia, GERD, RA and Trigeminal Neuralgia who presents with cough and shortness of breath for the past 2-3 days. Patient reports she has been unable to sleep
due to frequent cough. She reports cough seems loose but she is unable to bring up any mucus. She has been using her home nebulizer without much improvement her symptoms. She denies fevers, sweats or chills. She denies chest pain or lower
extremity edema.
Medical History
Past Medical History
Past Medical History: Reports Other
Additional Past Medical History:
COPD
Diabetes Mellitus, Type II
Essential Hypertension
Hyperlipidemia
Hypothyroidism
GERD
Rheumatoid Arthritis
Trigeminal Neuralgia
Lung Carcinoid Tumor s/p RUL Lobectomy
Past Surgical History: Reports Other
Additional Past Surgical History:
Right Upper Lung Lobectomy
Cholecystectomy
Appendectomy
Sigmoidectomy
Social History
Tobacco: Former Smoker
Family History
Family History: Not pertinent
Allergies / Home Medications
Allergies reflects when Allergies were last updated in [facility].
Home Medications with original date entered in [facility]
Allergy/Medication List:
Allergies
Allergy/AdvReac Type Severity Reaction Status Date / Time
No Known Allergies Allergy Verified 02/17/25 09:48
Home Medications
albuterol sulfate 90 mcg/actuation aerosol inhaler 2 puff inhalation R Q6 PRN sob/wheezing 01/01/23
cyanocobalamin (vitamin B-12) 1,000 mcg/mL injection solution 1,000 mcg IM MONTHLY Supplement 01/01/23
estradiol 0.01% (0.1 mg/gram) vaginal cream 2 g vaginal .3X WEEKLY Hormonal agent 01/01/23
fluticasone propionate 50 mcg/actuation nasal spray,suspension 1 spray intranasal BID 01/01/23
levothyroxine 50 mcg tablet 50 mcg PO DAILY Transplant 01/01/23
liraglutide 0.6 mg/0.1 mL (18 mg/3 mL) subcutaneous pen injector (Victoza 2-Matthew) 1.2 mg SC DAILY Diabetes ##0 01/01/23
losartan 50 mg tablet 25 mg PO DAILY Blood pressure 01/01/23
duloxetine 20 mg capsule,delayed release 20 mg PO DAILY 11/17/23
rizatriptan 10 mg disintegrating tablet 10 mg PO PRN PRN onset of headache 11/17/23
umeclidinium 62.5 mcg/actuation blister powder for inhalation (Incruse Ellipta) 1 inh inhalation R HS 11/17/23
ezetimibe 10 mg tablet 10 mg PO DAILY 02/17/25
famotidine 40 mg tablet 40 mg PO DAILY 02/17/25
ferrous sulfate 325 mg (65 mg iron) tablet 325 mg PO DAILY 02/17/25
hydroxychloroquine 200 mg tablet 200 mg PO DAILY 02/17/25
metoprolol succinate 25 mg tablet,extended release 24 hr 25 mg PO BID 02/17/25
mometasone 0.1 % topical cream 1 applic topical BIDPRN PRN Rash 02/17/25
rabeprazole 20 mg tablet,delayed release 20 mg PO DAILY 02/17/25
Review of Systems
-
History Source: Patient
A 12 point ROS was completed and negative except as noted: Yes
Constitutional: Denies Fever or Chills
Respiratory: Reports Cough and Trouble Breathing
Cardiac: Denies Chest Pain
Physical Exam
Vital Signs
Vital Signs
Temp Pulse Resp BP Pulse Ox
98.3 F 93 18 103/76 99
02/17/25 09:49 02/17/25 15:00 02/17/25 15:00 02/17/25 15:00 02/17/25 15:00
Physical Exam
General: Well Developed and Well Nourished
HEENT: NormoCephalic, Anicteric, Moist mucous membranes and Atraumatic
Respiratory: Other (Tachypneic; Coarse breath sounds throughout)
Cardiac: S1/S2 and Regular Rhythm; No Murmur
GI: Soft, Non Tender, Non Distended and Normal Bowel Sounds
Rectal: Deferred by Provider
Musculoskeletal: No Clubbing, No Cyanosis and No Edema
Skin: Warm and Dry; No Rash
Neuro: Awake, Alert, Oriented and Nonfocal/grossly intact
Psych: Calm
Laboratory Results
-
02/17/25 09:59
02/17/25 09:59
Laboratory Results
Total Bilirubin 1.4 mg/dl (0.2-1.3) H 02/17/25 09:59
AST 28 U/L (14-36) 02/17/25 09:59
ALT 32 U/L (0-35) 02/17/25 09:59
Alkaline Phosphatase 60 U/L (38-126) 02/17/25 09:59
Troponin I < 0.012 ng/ml 02/17/25 09:59
Chest X-Ray:
No acute cardiopulmonary process.
Data Reviewed
-
Diagnostic Radiology: Report Reviewed by me
Lab Data: Labs Reviewed by me
Old Records: Reviewed
Impression/Plan
-
Acute COPD Exacerbation
-Continue DuoNeb QID and PRN
-Continue Decadron 4mg IV Q12H
-Add Mucinex
Diabetes Mellitus, Type II
-HgbA1c 7.4 in February 2025
-Patient maintained on Victoza as outpatient
-Continue diabetic diet
-Monitor sugars and continue coverage insulin
Essential Hypertension
-Continue losartan and metoprolol succinate with hold parameters
Hyperlipidemia
-Continue Zetia
Hypothyroidism
-Continue Synthroid
GERD
-Continue Protonix and Pepcid
Rheumatoid Arthritis
-Continue hydroxychloroquine
Trigeminal Neuralgia
-Continue Duloxetine
Hx Lung Carcinoid Tumor s/p RUL Lobectomy
DVT proph: Lovenox
Code Status: Full Code
[2025-02-17] MEDS: DECADRON 4 MG IV (17:06)
[2025-02-17] MEDS: LOVENOX 40 MG SC (17:07)
[2025-02-17 17:11] LABS: Glucose - Point of Care 305 mg/dl (70-99)
--- NOTE | 2025-02-17 17:28 | PTCARENOTE ---
Patient admitted from ER, AAOx3, ambulated from stretcher to bed with standby assist. SpO2 97% on RA. Assisted patient with ordering dinner. Call monsivais within reach.
[2025-02-17] MEDS: TYLENOL 650 MG PO ×2 (17:52→22:00)
[2025-02-17] MEDS: NOVOLOG FLEXPEN-MODERATE RESISTANCE 7 UNITS SC (17:53)
[2025-02-17] MEDS: DUONEB INH (19:46)
[2025-02-17] MEDS: PULMICORT 0.5 MG INH (20:10)
[2025-02-17] MEDS: MUCINEX 600 MG PO (20:40)
[2025-02-17] MEDS: TOPROL XL 25 MG PO (20:40)
[2025-02-17 21:19] LABS: Glucose - Point of Care 377 mg/dl (70-99)
[2025-02-18] VITALS (7 sets, daily range): BP systolic 97–149; BP diastolic 56–85
[2025-02-18] MEDS: FEOSOL 325 MG PO (05:31)
[2025-02-18] MEDS: DECADRON 4 MG IV ×2 (05:31→18:24)
[2025-02-18 07:08] LABS: Hematocrit 40.1 % (37.0-47.0); Hemoglobin 13.7 g/dL (12.0-16.0); Mean Corp Hgb Conc. 34.2 g/dL (33.0-37.0); Mean Corpuscular Hgb 29.2 pg (27.0-31.0); Mean Corpuscular Volume 85.5 fL (81.0-99.0); Mean Platelet Volume 10.7 fL (7.4-10.4); Platelet Count 246 10^3/uL (130-400); Red Blood Cell Count 4.69 10^6/uL (4.20-5.40); Red Cell Dist. Width 13.2 % (11.5-14.5)
[2025-02-18] MEDS: PULMICORT 0.5 MG INH ×2 (07:20→19:58)
[2025-02-18] MEDS: DUONEB 3 ML INH ×4 (07:20→19:58)
[2025-02-18 07:49] LABS: Glucose - Point of Care 276 mg/dl (70-99)
[2025-02-18 08:29] LABS: Blood Urea Nitrogen 15 mg/dl (7-17); Calcium 10.3 mg/dl (8.4-10.2); Carbon Dioxide 22 mmol/L (22-30); Chloride 105 mmol/L (98-107); Estimated Creatinine Clearance 90 ml/min; Glucose 303 mg/dl (70-99); Potassium 4.9 mmol/L (3.5-5.1); Sodium 136 mmol/L (135-145); eGFR > 60.00
[2025-02-18] MEDS: NOVOLOG FLEXPEN-MODERATE RESISTANCE 5 UNITS SC ×3 (08:32→18:29)
[2025-02-18] MEDS: SYNTHROID 50 MCG PO (08:37)
[2025-02-18] MEDS: PLAQUENIL 200 MG PO (08:37)
[2025-02-18] MEDS: COZAAR 25 MG PO (08:37)
[2025-02-18] MEDS: MUCINEX 600 MG PO ×2 (08:37→20:37)
[2025-02-18] MEDS: ZETIA 10 MG PO (08:37)
[2025-02-18] MEDS: CYMBALTA DELAYED RELEASE 20 MG PO (08:37)
[2025-02-18] MEDS: PEPCID 40 MG PO (08:38)
[2025-02-18] MEDS: PROTONIX 40 MG PO (08:38)
[2025-02-18] MEDS: TOPROL XL 25 MG PO ×2 (08:38→20:37)
[2025-02-18 11:50] LABS: Glucose - Point of Care 292 mg/dl (70-99)
[2025-02-18] MEDS: DESENEX/MITRAZOL/ZEASORB 1 APPLIC TOPICAL ×2 (11:50→20:38)
--- NOTE | 2025-02-18 13:56 | W.PN.HOSP.TC ---
Today's Communication/Plan
-
Continue current treatments and consider switching to oral prednisone tomorrow.
Monitor blood sugars closely. Continue sliding scale insulin.
Assessment / Plan
Assessment / Plan
Acute COPD Exacerbation
-Continue DuoNeb QID and PRN
-Continue Decadron 4mg IV Q12H. if continued improvement we will switch to oral steroids tomorrow and consider discharge
-Add Mucinex
Diabetes Mellitus, Type II
-HgbA1c 7.4 in February 2025
-Patient maintained on Victoza as outpatient
-Continue diabetic diet
-Monitor sugars and continue coverage insulin
Essential Hypertension
-Continue losartan and metoprolol succinate with hold parameters
Hyperlipidemia
-Continue Zetia
Hypothyroidism
-Continue Synthroid
GERD
-Continue Protonix and Pepcid
Rheumatoid Arthritis
-Continue hydroxychloroquine
Trigeminal Neuralgia
-Continue Duloxetine
Hx Lung Carcinoid Tumor s/p RUL Lobectomy
DVT proph: Lovenox
Code Status: Full Code
Anticipated Discharge: Within 24 hours
Subjective/Interval History
-
Date of Service: February 18, 2025
Feeling improved.
It all started on last week with hoarse voice and nasal congestion. She was hearing a wheeze. She became short of breath.
Known to have COPD but no flares this year but she had a flare last year requiring steroids.
In the last 2 months she was getting evaluated for rheumatoid arthritis with joint symptoms. 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
Follow with pulm for COPD ;not on home O2.
Objective Data
-
Labs:
Laboratory Results
02/18/25
06:07
WBC 14.0 H
Hgb 13.7
Hct 40.1
Plt Count 246
Sodium 136
Potassium 4.9
Chloride 105
Carbon Dioxide 22
BUN 15
Creatinine 0.5 L
Glucose 303 H
Calcium 10.3 H
Vital Signs:
Vital Signs
Temp Pulse Resp BP Pulse Ox
98.2 F 83 16 149/76 100
02/18/25 11:00 02/18/25 11:21 02/18/25 11:21 02/18/25 11:00 02/18/25 11:21
I&O
02/17/25 02/18/25 02/19/25
06:59 06:59 06:59
Intake Total 480 / 480
Balance 480 / 480
Review of Systems
-
Constitutional: Denies Fever
Respiratory: Denies Trouble Breathing
Abdomen/GI: Denies Nausea or Vomiting
Neuro: Denies Dizzy
Physical Exam
-
General: No Apparent Distress
Respiratory: Non Labored Respirations and Accessory Resp Muscle Use; Negative Wheezes or Rales
Cardiac: Regular Rhythm and S1/S2
Musculoskeletal: Negative No Edema
Neuro: AO x 3
Data Reviewed
-
Labs: Labs Reviewed by me
[2025-02-18 16:59] LABS: Glucose - Point of Care 283 mg/dl (70-99)
--- NOTE | 2025-02-18 16:59 | CM ---
manager green reviewed patient's chart and met with patient and patient lives with her nephew in a 2 story home, 3 steps to enter, patient is independent with adl's and ambulation, no dme, home no needs when stable.
PCP: Jose Luis Goetz
Pharmacy: [facility] in [place]
Plan; Home no needs.
[2025-02-18] MEDS: FLUSH (NSS) 2 FLUSH IV (18:27)
[2025-02-18] MEDS: LOVENOX 40 MG SC (18:31)
[2025-02-18] MEDS: TYLENOL 650 MG PO (20:38)
[2025-02-18 21:10] LABS: Glucose - Point of Care 381 mg/dl (70-99)
[2025-02-19 02:56] VITALS: BP 131/52
[2025-02-19] MEDS: FEOSOL 325 MG PO (06:44)
[2025-02-19] MEDS: DECADRON 4 MG IV (06:44)
[2025-02-19 07:00] VITALS: BP 143/70
[2025-02-19 07:20] LABS: Glucose - Point of Care 305 mg/dl (70-99)
[2025-02-19] MEDS: DUONEB 3 ML INH ×3 (07:36→14:45)
[2025-02-19] MEDS: PULMICORT 0.5 MG INH (07:36)
[2025-02-19] MEDS: CYMBALTA DELAYED RELEASE 20 MG PO (09:39)
[2025-02-19] MEDS: ZETIA 10 MG PO (09:39)
[2025-02-19] MEDS: PROTONIX 40 MG PO (09:39)
[2025-02-19] MEDS: NOVOLOG FLEXPEN-MODERATE RESISTANCE 7 UNITS SC (09:40)
[2025-02-19] MEDS: PEPCID 40 MG PO (09:40)
[2025-02-19] MEDS: COZAAR 25 MG PO (09:40)
[2025-02-19] MEDS: SYNTHROID 50 MCG PO (09:40)
[2025-02-19] MEDS: PLAQUENIL 200 MG PO (09:40)
[2025-02-19] MEDS: TOPROL XL 25 MG PO (09:40)
[2025-02-19] MEDS: MUCINEX 600 MG PO (09:40)
[2025-02-19] MEDS: DESENEX/MITRAZOL/ZEASORB 1 APPLIC TOPICAL (09:51)
[2025-02-19 11:06] VITALS: BP 126/59
[2025-02-19 11:21] LABS: Glucose - Point of Care 388 mg/dl (70-99)
[2025-02-19 11:48] LABS: Urine Albumin 1+ (Neg - Trace); Urine Bilirubin Negative (Negative); Urine Character Clear (Clear); Urine Color Yellow; Urine Glucose 4+ (Negative); Urine Ketone Negative (Negative); Urine Leukocyte Negative (Negative); Urine Nitrite Negative (Negative); Urine Occult Blood Negative (Negative); Urine Specific Gravity 1.015 (<1.030); Urine Urobilinogen Negative (Neg - 1+)
[2025-02-19 12:09] LABS: Urine Squamous Cell >30 /LPF (Few)
[2025-02-19 12:13] LABS: Urine Bacteria Few (Negative); Urine Red Blood Cell 0-2 /HPF (0-2)
[2025-02-19] MEDS: NOVOLOG FLEXPEN-MODERATE RESISTANCE 9 UNITS SC (12:26)
--- NOTE | 2025-02-19 13:29 | W.PN.HOSP.TC ---
Today's Communication/Plan
-
DC
Assessment / Plan
Assessment / Plan
Acute COPD Exacerbation
-Without active reactive airways. Switch to oral prednisone with rapid taper.
-Continue DuoNeb QID and PRN. Patient has both inhalers and nebulizers at home for use.
Diabetes Mellitus, Type II
-HgbA1c 7.4 in February 2025
-Patient maintained on Victoza as outpatient. She also takes metformin 5 mg twice daily
- Hyperglycemia secondary to steroids noted. Patient advised to use metformin 1000 mg twice a day for the next week. She also checks blood sugars at home advised the aim is to keep blood sugars around 140. Persistent elevation more than 188 to
call her primary doctor.
-Continue diabetic diet
Urinary discomfort-urinalysis negative. Albuminuria noted but she is diabetic. No pyuria. Unclear if it related to topical vaginal cream. Advised to follow-up with her PCP if recurrent symptoms.
Essential Hypertension
-Continue losartan and metoprolol succinate with hold parameters
Hyperlipidemia
-Continue Zetia
Hypothyroidism
-Continue Synthroid
GERD
-Continue Protonix and Pepcid
Rheumatoid Arthritis
-Continue hydroxychloroquine
Trigeminal Neuralgia
-Continue Duloxetine
Hx Lung Carcinoid Tumor s/p RUL Lobectomy
DVT proph: Lovenox
Code Status: Full Code
Medically stable for discharge home today.
Total time of discharge 32 minutes
Anticipated Discharge: Today
Subjective/Interval History
-
Date of Service: February 19, 2025
Feeling improved on the breathing standpoint.
Not much of cough or phlegm. Not short of breath. No fever or chills. Tolerating diet.
Patient with history of prior UTIs. She has now some discomfort with urination. She uses estrogen vaginal cream 3 times a week.
Objective Data
-
Vital Signs:
Vital Signs
Temp Pulse Resp BP Pulse Ox
98.1 F 83 16 126/59 97
02/19/25 11:06 02/19/25 11:24 02/19/25 11:24 02/19/25 11:06 02/19/25 11:24
I&O
02/18/25 02/19/25 02/20/25
06:59 06:59 06:59
Intake Total 960 / 960 1640 / 1640
Balance 960 / 960 1640 / 1640
Review of Systems
-
Cardiac: Denies Chest Pain
Abdomen/GI: Denies Abdominal Pain, Nausea or Vomiting
Neuro: Denies Dizzy
Physical Exam
-
General: Comfortable
Respiratory: Non Labored Respirations; Negative Wheezes, Rales or Accessory Resp Muscle Use
Cardiac: Regular Rhythm and S1/S2
Neuro: AO x 3
Data Reviewed
-
Labs: Labs Reviewed by me
--- NOTE | 2025-02-19 13:46 | W.DCSUMMARY ---
Discharge Summary
Discharge Data
Date of Admission: 02/17/25
Date of Discharge: 02/19/25
-
Pending Results: No
Hospital Course
Primary diagnosis:
Acute chronic obstructive pulmonary disease exacerbation
Hyperglycemia secondary to steroids
Secondary diagnosis:
Diabetes mellitus type 2 with hemoglobin A1c 7.4
Essential hypertension
Hyperlipidemia
Hypothyroidism
Gastroesophageal reflux disease
Rheumatoid arthritis
Trigeminal neuralgia
History of lung carcinoid tumor status post right upper lobe lobectomy
Hospital course:
Patient presented with hoarse voice and nasal congestion and she was hearing a wheeze. She was feeling short of breath. She was diagnosed to have acute COPD exacerbation possibly from an URI infection. Chest x-ray without evidence of pneumonia.
She is known to have COPD with no flares this year. On chronic inhaler therapy including steroid inhalers. She was put on steroids with significant improvement and that was switched to oral prednisone and advised a rapid taper at home.
With the steroids her blood sugar was running high. She does not have diabetes mellitus type 2 but her hemoglobin A1c was 7.4. She takes with toes and as well as metformin. I advised her to increase the metformin dose from 500 to 1000 mg twice
daily while she is on the steroids which is for the next 4 days. She does have glucose monitoring kit at home and she checks it every day in the morning before breakfast. Advised to touch base with PCP in more than 180 for blood sugars in the
morning.
she had some urinary discomfort but no other signs of urinary infection. Urinalysis shows no pyuria. She has a atrophic vaginitis for which she uses estradiol cream. Advised to hold on estradiol cream application and make sure there is no
secondary irritation but if still persistent discomfort to follow-up with the PCP.
Discharge Plan
-
Patient Disposition: Home (Routine Discharge)
Discharge Diagnosis/Procedures: COPD exacerbation
Diet: Diabetic, Carb Controlled
Activity: As tolerated
Driving Restrictions: As prior to admission
Referrals:
Kingsley Goetz MD [Family Provider, Family Practice] - in less than 1 week
Prescriptions:
New
guaifenesin 600 mg Tablet Extended Release 12hr
600 mg PO Q12 Qty: 14 0RF
ipratropium-albuterol 0.5 mg-3 mg(2.5 mg base)/3 mL Solution For Nebulization
3 ml inhalation R Q4HPRN PRN (Reason: shortness of breath/wheeze) Qty: 1 0RF
metformin 1,000 mg tablet
1,000 mg PO BID Qty: 1 0RF
Rx Instructions:
Increase your metformin to 1000mg twice a day for a week and follow your blood sugars with your PCP
prednisone 10 mg tablet
10 mg PO DIRECTED Qty: 6 0RF
Rx Instructions:
20mg daily for 2 days and then
10mg daily for 2 days and stop
Continued
losartan 50 mg tablet
25 mg PO DAILY
levothyroxine 50 mcg tablet
50 mcg PO DAILY
albuterol sulfate 90 mcg/actuation HFA aerosol inhaler
2 puff INHALATION R Q6 PRN (Reason: sob/wheezing)
fluticasone propionate 50 mcg/actuation spray,suspension
1 spray INTRANASAL BID
cyanocobalamin (vitamin B-12) 1,000 mcg/mL Solution
1,000 mcg IM MONTHLY
liraglutide [Victoza 2-Matthew] 0.6 mg/0.1 mL (18 mg/3 mL) Pen Injector
1.2 mg SC DAILY Qty: 0
rizatriptan 10 mg tablet,disintegrating
10 mg PO PRN PRN (Reason: onset of headache)
duloxetine 20 mg capsule,delayed release(DR/EC)
20 mg PO DAILY
Incruse Ellipta 62.5 mcg/actuation blister with device
1 inh inhalation R HS
rabeprazole 20 mg tablet,delayed release (DR/EC)
20 mg PO DAILY
famotidine 40 mg tablet
40 mg PO DAILY
ferrous sulfate 325 mg (65 mg iron) tablet
325 mg PO DAILY
metoprolol succinate 25 mg tablet extended release 24 hr
25 mg PO BID
hydroxychloroquine 200 mg tablet
200 mg PO DAILY
mometasone 0.1 % cream
1 applic TOPICAL BIDPRN PRN (Reason: Rash)
ezetimibe 10 mg tablet
10 mg PO DAILY
Held
estradiol 0.01 % (0.1 mg/gram) cream
2 g VAGINAL .3X WEEKLY
Hold Instructions: Resume on 02/26/25. Hold if for a week and see if your urinary discomfort improves
Discharge Orders:
Discharge Patient (As Directed); Ordered 02/19/25
Ordered By: Quinn Landaverde
Discharge Date and Time
Print Language: KISWAHILI
== END 2025-02-19 15:21 | disposition home or self-care (01) | DRG 192 ==
LOC: 4 WEST ACU 15:30
PROVIDERS: Physician Assistant; Physician Assistant Medical; ADMITTING PHYSICIAN Internal Medicine; ATTENDING PHYSICIAN Internal Medicine; EMERGENCY PHYSICIAN Emergency Medicine; FAMILY PHYSICIAN Student in an Organized Health Care Education/Training Program
PROC: 3E0234Z Introduction of Serum, Toxoid and Vaccine into Muscle, Percutaneous Approach (ICD-10-PCS; 2025-02-19)
DX: J44.1 Chronic obstructive pulmonary disease with (acute) exacerbation (principal); J44.0 Chronic obstructive pulmonary disease with (acute) lower respiratory infection; E11.65 Type 2 diabetes mellitus with hyperglycemia; I10 Essential (primary) hypertension; E03.9 Hypothyroidism, unspecified; E78.5 Hyperlipidemia, unspecified; F32.A Depression, unspecified; F41.9 Anxiety disorder, unspecified; K21.9 Gastro-esophageal reflux disease without esophagitis; M06.9 Rheumatoid arthritis, unspecified; G50.0 Trigeminal neuralgia; Z87.891 Personal history of nicotine dependence; Z11.52 Encounter for screening for COVID-19; Z23 Encounter for immunization
CPT/HCPCS: 71046; 80048; 80053; 81003; 81015; 82962; 84484; 85025; 85027; 87811; 93005; 94640; 96374; 99285

== ENCOUNTER → 2025-03-27 08:33 | Outpatient (REF) | payer MEDICARE, SELFPAY | LOC: HWRAD 08:33 | PROVIDERS: ATTENDING PHYSICIAN Student in an Organized Health Care Education/Training Program | DX: Z12.31 Encounter for screening mammogram for malignant neoplasm of breast (principal); R10.9 Unspecified abdominal pain | CPT/HCPCS: 76775; 77063; 77067 ==

== ENCOUNTER 2025-03-29 14:57 | Emergency (ER) | payer MEDICARE, SELFPAY ==
[2025-03-29 15:08] VITALS: BP 138/75
[2025-03-29 15:36] LABS: Hematocrit 42.2 % (37.0-47.0); Hemoglobin 14.3 g/dL (12.0-16.0); Mean Corp Hgb Conc. 33.9 g/dL (33.0-37.0); Mean Corpuscular Volume 86.7 fL (81.0-99.0); Nucleated Red Blood Cells % 0 %; Platelet Count 294 10^3/uL (130-400); Red Cell Dist. Width 13.2 % (11.5-14.5)
[2025-03-29 15:47] LABS: ALT (SGPT) 33 U/L (0-35); AST (SGOT) 31 U/L (14-36); Albumin 4.7 g/dl (3.5-5.0); Alkaline Phosphatase 51 U/L (38-126); Blood Urea Nitrogen 11 mg/dl (7-17); Calcium 11.4 mg/dl (8.4-10.2); Carbon Dioxide 27 mmol/L (22-30); Chloride 104 mmol/L (98-107); Glucose 165 mg/dl (70-99); Potassium 4.8 mmol/L (3.5-5.1); Sodium 136 mmol/L (135-145); Total Protein 7.3 g/dl (6.3-8.2); eGFR > 60.00
--- NOTE | 2025-03-29 18:02 | EDRN ---
Cliff Madrid PA in room w/ pt at this time.
--- NOTE | 2025-03-29 18:06 | ED.GENMED ---
History of Present Illness
General
Chief Complaint: Headache
Time Seen by Provider: 03/29/25 18:00
History of Present Illness
History of Present Illness:
74-year-old female presents to the emergency department for evaluation of intermittent right-sided headache and gait instability for the past 5 days. Headache seems to wax and wane without obvious provoking or palliating factors. Has taken Maxalt
without relief. No vision changes. Feels unsteady when ambulating. No chest pain or shortness of breath. Does report occasional 'difficulty focusing' with vision and her primary care physician sent her for evaluation of possible temporal
arteritis
Past History
Past History
ED Past Medical History: Asthma, Cancer (Lung CA-carcinoid, right upper lobe resection), COPD, GERD, HTN, NIDDM and Other (Trigeminal neuralgia, PNA, UTi)
ED Past Surgical History: Appendectomy, Bowel resection (Sigmoidectomy), Cholecystectomy, Gynecological (Oophorectomy, Tubal) and Other (right upper lobe removed)
Social History
Tobacco: Former smoker
Alcohol: None
Personal:
Living: alone
Employment: Retired
Family History
Family History: Other (Noncontributory)
Review of Systems
Review of Systems
Allergies reviewed?: Yes
All Other Systems: ROS reviewed and negative except as documented in HPI and ROS
Phy Exam
Physical Exam
Physical Exam:
GEN: Well appearing, NAD, WDWN
HEENT: Oral mucosa moist, no scleral icterus, no nasal congestion. No temporal artery tenderness. No visible skin lesions to the parietal or temporal scalp
Cardiac: Regular rate
Lung: No respiratory distress, no tachypnea
MSK: No gross deformity or injuries
Skin: Good color, no pallor or jaundice, no rashes
Neuro: AO x3; CN II-XII grossly intact. BUE strength 5/5 in all jain, sensation intact and symmetric. BLE strength 5/5 in all jain, sensation intact and symmetric
Psych: Calm, cooperative
Course
Orders/Labs/Results
Orders:
Orders
03/29/25 15:23
Comprehensive Metabolic Panel Urgent
03/29/25 15:24
C-Reactive Protein Urgent
Comment: ADDON
Complete Blood Count/With Diff Urgent
03/29/25 18:06
Add On- LAB Urgent
Tests Added?: CRP
03/29/25 18:09
CT Head W/o Iv Contrast Urgent
Comment:
Reason For Exam: intractable headache
03/29/25 18:31
Ketorolac [Toradol] 30 mg .ROUTE .STK-MED ONE
03/29/25 18:33
Ketorolac [Toradol] 30 mg IM NOW STA
03/29/25 20:40
Sumatriptan Succinate [Imitrex] 50 mg PO NOW STA
Abnormal Lab Results
03/29/25 03/29/25
15:23 15:24
Absolute Monos (auto) 0.8 H 10^3/uL
(0.1-0.6)
Glucose 165 H mg/dl
(70-99)
Calcium 11.4 H mg/dl
(8.4-10.2)
03/29/25 15:24
03/29/25 15:23
Vital Signs
Initial and Last Documented VS:
Initial Vital Signs
Temp Pulse Resp BP Pulse Ox
98.2 F 82 20 138/75 99
03/29/25 15:08 03/29/25 15:08 03/29/25 15:08 03/29/25 15:08 03/29/25 15:08
Last Documented Vital Signs
Temp Pulse Resp BP Pulse Ox
98.2 F 73 16 150/92 97
03/29/25 15:08 03/29/25 20:20 03/29/25 18:20 03/29/25 20:20 03/29/25 18:20
MDM/Problems Addressed
MDM/Problems Addressed:
CT head negative, CRP negative rules out temporal arteritis, neurologically intact, doubt meningitis as she is afebrile and nontoxic
*Pulse Oximetry
SaO2: 99
Oxygen Mode of Delivery: Room air
Patient hypoxic: no
*Critical Care Note
Total Time (30-74mins, 75-104mins- exclusive of procedures): Not Applicable
ED Attending Note
-
Portions of this chart may have been created with voice recognition software.� Occasional wrong word or��sound alike� substitutions may have occurred due to the inherent limitations of voice recognition software.
Discharge Plan
Departure
Patient Disposition: Home (Routine Discharge)
Date of Disposition: 03/29/25
Time of Disposition: 20:08
Patient with high blood pressure during this ER visit?: No
Discharge Problem:
Acute intractable headache
Instructions: Headache, Adult (DC)
Prescriptions:
New
qyibxityxy-sjewhzpqlykbi-qmow [Fioricet] 50-300-40 mg capsule
1 cap PO Q8H PRN (Reason: Pain) Qty: 10 0RF
No Action
losartan 50 mg tablet
25 mg PO DAILY
levothyroxine 50 mcg tablet
50 mcg PO DAILY
albuterol sulfate 90 mcg/actuation HFA aerosol inhaler
2 puff INHALATION R Q6 PRN (Reason: sob/wheezing)
fluticasone propionate 50 mcg/actuation spray,suspension
1 spray INTRANASAL BID
cyanocobalamin (vitamin B-12) 1,000 mcg/mL Solution
1,000 mcg IM MONTHLY
estradiol 0.01 % (0.1 mg/gram) cream
2 g VAGINAL .3X WEEKLY
liraglutide [Victoza 2-Matthew] 0.6 mg/0.1 mL (18 mg/3 mL) Pen Injector
1.2 mg SC DAILY Qty: 0
rizatriptan 10 mg tablet,disintegrating
10 mg PO PRN PRN (Reason: onset of headache)
duloxetine 20 mg capsule,delayed release(DR/EC)
20 mg PO DAILY
Incruse Ellipta 62.5 mcg/actuation blister with device
1 inh inhalation R HS
rabeprazole 20 mg tablet,delayed release (DR/EC)
20 mg PO DAILY
famotidine 40 mg tablet
40 mg PO DAILY
ferrous sulfate 325 mg (65 mg iron) tablet
325 mg PO DAILY
metoprolol succinate 25 mg tablet extended release 24 hr
25 mg PO BID
hydroxychloroquine 200 mg tablet
200 mg PO DAILY
mometasone 0.1 % cream
1 applic TOPICAL BIDPRN PRN (Reason: Rash)
ezetimibe 10 mg tablet
10 mg PO DAILY
guaifenesin 600 mg Tablet Extended Release 12hr
600 mg PO Q12 Qty: 14 0RF
ipratropium-albuterol 0.5 mg-3 mg(2.5 mg base)/3 mL Solution For Nebulization
3 ml inhalation R Q4HPRN PRN (Reason: shortness of breath/wheeze) Qty: 1 0RF
metformin 1,000 mg tablet
1,000 mg PO BID Qty: 1 0RF
Rx Instructions:
Increase your metformin to 1000mg twice a day for a week and follow your blood sugars with your PCP
prednisone 10 mg tablet
10 mg PO DIRECTED Qty: 6 0RF
Rx Instructions:
20mg daily for 2 days and then
10mg daily for 2 days and stop
Referrals:
Kingsley Goetz MD [Family Provider, Family Practice]
Interventions
Interventions:
*Risk Screen - Suicide Last Done: 03/29/25 15:08
*General Assessment Last Done: 03/29/25 18:17
*Neglect/Abuse Screening Last Done: 03/29/25 15:08
*ED- Fall Risk Assessment Last Done: 03/29/25 18:17
*ED COVID-19 Vaccine History Last Done: 03/29/25 18:17
*Nursing Disposition Last Done: 03/29/25 20:50
ED- Neurological Assessment Last Done: 03/29/25 20:40
Discharge Date and Time
Discharge Date/Time: 03/29/25 20:50
Print Language: GERMAN
--- NOTE | 2025-03-29 18:14 | EDRN ---
Pt states she arrives for a headache and has pea sized bumps on R side of head over restorationist area and pain that goes from that area into her jaw and at times has a stabbing pain in her R ear. Pt has had these symptoms for past 5 days. Pt called
[facility] for an appt, was asked by the nurse there to come to ER.
[2025-03-29 18:16] VITALS: BMI 33.3
[2025-03-29 18:20] VITALS: BP 146/71
[2025-03-29] MEDS: TORADOL 30 MG IM (18:33)
[2025-03-29 19:18] LABS: C-Reactive Protein < 5.00 mg/L (0.0-10.00)
[2025-03-29 20:20] VITALS: BP 150/92
[2025-03-29] MEDS: IMITREX 50 MG PO (20:46)
== END 2025-03-29 20:50 | disposition home or self-care (01) ==
LOC: EMR 14:57
PROVIDERS: Emergency Medicine; EMERGENCY PHYSICIAN Emergency Medicine; FAMILY PHYSICIAN Student in an Organized Health Care Education/Training Program
DX: R51.9 Headache, unspecified (principal); S09.90XA Unspecified injury of head, initial encounter; W22.8XXA Striking against or struck by other objects, initial encounter; Z87.891 Personal history of nicotine dependence
CPT/HCPCS: 99284; 96372; 70450; 80053; 85025; 86140

== ENCOUNTER → 2025-05-22 10:54 | Outpatient (REF) | payer MEDICARE, SELFPAY | LOC: RAD 10:54 | PROVIDERS: ATTENDING PHYSICIAN Physician Assistant; FAMILY PHYSICIAN Student in an Organized Health Care Education/Training Program; REFERRING PHYSICIAN Psychiatry & Neurology Neurology | DX: I73.00 Raynaud's syndrome without gangrene (principal); M25.50 Pain in unspecified joint; M25.60 Stiffness of unspecified joint, not elsewhere classified; R21 Rash and other nonspecific skin eruption; R76.8 Other specified abnormal immunological findings in serum | CPT/HCPCS: 76882 ==

== ENCOUNTER → 2025-06-14 12:05 | Outpatient (REF) | payer MEDICARE, SELFPAY | LOC: MRI 3T 12:05 | PROVIDERS: ATTENDING PHYSICIAN Student in an Organized Health Care Education/Training Program; REFERRING PHYSICIAN Psychiatry & Neurology Neurology | DX: R51.9 Headache, unspecified (principal); R26.81 Unsteadiness on feet | CPT/HCPCS: 70544; 70553 ==

== ENCOUNTER → 2025-06-21 13:14 | Outpatient (REF) | payer MEDICARE, SELFPAY | LOC: PAVMRI 13:14 | PROVIDERS: ATTENDING PHYSICIAN Student in an Organized Health Care Education/Training Program | DX: R51.9 Headache, unspecified (principal); R26.81 Unsteadiness on feet | CPT/HCPCS: 70549; A9585 ==

== ENCOUNTER → 2025-07-05 11:40 | Outpatient (REF) | payer MEDICARE, SELFPAY ==
[2025-07-05 13:08] LABS: Blood Urea Nitrogen 6 mg/dl (7-17); Calcium 10.3 mg/dl (8.4-10.2); Carbon Dioxide 25 mmol/L (22-30); Chloride 105 mmol/L (98-107); Glucose 84 mg/dl (70-99); Potassium 4.7 mmol/L (3.5-5.1); Sodium 140 mmol/L (135-145); eGFR > 60.00
[2025-07-05 13:39] LABS: Vitamin D, 25-OH*** 42.0 ng/mL (30-80)
[2025-07-05 13:52] LABS: TSH 0.37 uIU/ml (0.47-4.68)
[2025-07-05 14:15] LABS: Glycohemoglobin (HgbA1c) 5.6 % (4.0-5.9)
== END ==
LOC: REG 11:40
PROVIDERS: ATTENDING PHYSICIAN Nurse Practitioner Family; FAMILY PHYSICIAN Student in an Organized Health Care Education/Training Program
DX: E11.65 Type 2 diabetes mellitus with hyperglycemia (principal); E34.9 Endocrine disorder, unspecified
CPT/HCPCS: 36415; 80048; 82306; 82330; 83036; 83970; 84439; 84443

== ENCOUNTER → 2025-07-10 08:20 | Outpatient (REF) | payer MEDICARE, SELFPAY ==
[2025-07-10 10:37] LABS: 24 Hour Urine Total Volume 1700 ml
== END ==
LOC: REG 08:20
PROVIDERS: ATTENDING PHYSICIAN Nurse Practitioner Family; FAMILY PHYSICIAN Student in an Organized Health Care Education/Training Program
DX: E34.9 Endocrine disorder, unspecified (principal)
CPT/HCPCS: 81050; 82340; 82570

== ENCOUNTER 2025-07-10 08:27 | Emergency (ER) | payer MEDICARE, SELFPAY ==
[2025-07-10 08:30] VITALS: BP 159/75
--- NOTE | 2025-07-10 08:54 | ED.GENMED ---
History of Present Illness
General
Chief Complaint: Dizziness
Time Seen by Provider: 07/10/25 08:45
History of Present Illness
History of Present Illness:
74-year-old female with history of COPD, hypertension, diverticulitis status post sigmoid colectomy, lung cancer status post right upper lobectomy, and [id number] diabetes presents to the emergency department for evaluation of
lightheadedness and dizziness that has been ongoing for quite some time, acutely worsening in the setting of new diarrhea for the past week. In regards to the dizziness she states this has been ongoing for several months and she is currently being
evaluated for 'autoimmune issues'. She was recently started on Plaquenil about 3 months ago but this has not provided any symptom relief. Diarrhea began within the past week, describes 4-5 episodes of watery nonbloody diarrhea daily, and feels
that her chronic dizziness seems to be worsening as a result. Reports general fatigue and 'poor stamina'. Was started on Ozempic about 3 to 4 months ago but has not had any dosage changes recently. Also notes that she was treated for UTI within
the past 3 months with antibiotics. Prior abdominal surgical history includes total abdominal hysterectomy, appendectomy, cholecystectomy, and sigmoid colectomy
Past History
Past History
ED Past Medical History: Asthma, Cancer (Lung CA-carcinoid, right upper lobe resection), COPD, GERD, HTN, NIDDM and Other (Trigeminal neuralgia, PNA, UTi)
ED Past Surgical History: Appendectomy, Bowel resection (Sigmoidectomy), Cholecystectomy, Gynecological (Oophorectomy, Tubal) and Other (right upper lobe removed)
Social History
Tobacco: Former smoker
Alcohol: None
Personal:
Living: alone
Employment: Retired
Family History
Family History: Other (Noncontributory)
Review of Systems
Review of Systems
Allergies reviewed?: Yes
All Other Systems: ROS reviewed and negative except as documented in HPI and ROS
Phy Exam
Physical Exam
Physical Exam:
GEN: Well appearing, NAD, WDWN
HEENT: Oral mucosa moist, no scleral icterus, no nasal congestion
Cardiac: Regular rate and rhythm, no murmur
Lung: No respiratory distress, no tachypnea, lungs clear to auscultation bilaterally
Abdomen: Soft, moderate diffuse tenderness to all 4 quadrants, most severe in the right lower quadrant, no rigidity or peritoneal signs
MSK: No gross deformity or injuries
Skin: Good color, no pallor or jaundice, no rashes
Neuro: AO x3; CN II-XII grossly intact. BUE strength 5/5 in all jain, sensation intact and symmetric. BLE strength 5/5 in all jain, sensation intact and symmetric
Psych: Calm, cooperative
Course
Orders/Labs/Results
Orders:
Orders
07/10/25 08:54
Electrocardiogram (*1) Urgent
Reason for Study: QTc Monitoring
EKG- Treatment ONCE
Lactated Ringers [Lr] 1,000 ml IV BOLUS
07/10/25 09:09
Complete Blood Count/With Diff Urgent
Comprehensive Metabolic Panel Urgent
Lipase Urgent
Abnormal Lab Results
07/10/25
09:09
MCHC 32.8 L g/dL
(33.0-37.0)
Lymphocytes % 18.9 L %
(20.5-51.1)
Glucose 110 H mg/dl
(70-99)
Calcium 10.8 H mg/dl
(8.4-10.2)
Total Bilirubin 1.6 H mg/dl
(0.2-1.3)
07/10/25 09:09
07/10/25 09:09
Vital Signs
Initial and Last Documented VS:
Initial Vital Signs
Temp Pulse Resp Pulse Ox
98.4 F 83 18 99
07/10/25 08:28 07/10/25 08:28 07/10/25 08:28 07/10/25 08:28
Last Documented Vital Signs
Temp Pulse Resp BP Pulse Ox
98.4 F 80 13 146/68 96
07/10/25 08:28 07/10/25 12:48 07/10/25 12:48 07/10/25 15:04 07/10/25 12:00
MDM/Problems Addressed
MDM/Problems Addressed:
Patient was not able to provide stool specimen prior to discharge. Outpatient orders are written for this. She appears clinically well and is suitable for ongoing outpatient management. Her dizziness is likely an acute worsening secondary to
hypovolemia and she was given IV fluids in the ED. No indication for imaging at this time, doubt bowel obstruction despite her surgical history given the frequency of her diarrhea and lack of significant abdominal distention.
*Pulse Oximetry
SaO2: 99
Oxygen Mode of Delivery: Room air
Patient hypoxic: no
*Critical Care Note
Total Time (30-74mins, 75-104mins- exclusive of procedures): Not Applicable
ED Attending Note
-
Portions of this chart may have been created with voice recognition software.� Occasional wrong word or��sound alike� substitutions may have occurred due to the inherent limitations of voice recognition software.
Discharge Plan
Departure
Patient Disposition: Home (Routine Discharge)
Date of Disposition: 07/10/25
Time of Disposition: 12:22
Patient with high blood pressure during this ER visit?: No
Discharge Problem:
Diarrhea, Dizziness
Instructions: Diarrhea in adults - ED (DC)
Prescriptions:
No Action
losartan 50 mg tablet
25 mg PO DAILY
levothyroxine 50 mcg tablet
50 mcg PO DAILY
albuterol sulfate 90 mcg/actuation HFA aerosol inhaler
2 puff INHALATION R Q6 PRN (Reason: sob/wheezing)
fluticasone propionate 50 mcg/actuation spray,suspension
1 spray INTRANASAL BID
cyanocobalamin (vitamin B-12) 1,000 mcg/mL Solution
1,000 mcg IM MONTHLY
estradiol 0.01 % (0.1 mg/gram) cream
2 g VAGINAL .3X WEEKLY
liraglutide [Victoza 2-Matthew] 0.6 mg/0.1 mL (18 mg/3 mL) Pen Injector
1.2 mg SC DAILY Qty: 0
rizatriptan 10 mg tablet,disintegrating
10 mg PO PRN PRN (Reason: onset of headache)
duloxetine 20 mg capsule,delayed release(DR/EC)
20 mg PO DAILY
Incruse Ellipta 62.5 mcg/actuation blister with device
1 inh inhalation R HS
rabeprazole 20 mg tablet,delayed release (DR/EC)
20 mg PO DAILY
famotidine 40 mg tablet
40 mg PO DAILY
ferrous sulfate 325 mg (65 mg iron) tablet
325 mg PO DAILY
metoprolol succinate 25 mg tablet extended release 24 hr
25 mg PO BID
hydroxychloroquine 200 mg tablet
200 mg PO DAILY
mometasone 0.1 % cream
1 applic TOPICAL BIDPRN PRN (Reason: Rash)
ezetimibe 10 mg tablet
10 mg PO DAILY
guaifenesin 600 mg Tablet Extended Release 12hr
600 mg PO Q12 Qty: 14 0RF
ipratropium-albuterol 0.5 mg-3 mg(2.5 mg base)/3 mL Solution For Nebulization
3 ml inhalation R Q4HPRN PRN (Reason: shortness of breath/wheeze) Qty: 1 0RF
metformin 1,000 mg tablet
1,000 mg PO BID Qty: 1 0RF
Rx Instructions:
Increase your metformin to 1000mg twice a day for a week and follow your blood sugars with your PCP
prednisone 10 mg tablet
10 mg PO DIRECTED Qty: 6 0RF
Rx Instructions:
20mg daily for 2 days and then
10mg daily for 2 days and stop
tklgdreeqg-ihheapfltlrjt-xuvq [Fioricet] 50-300-40 mg capsule
1 cap PO Q8H PRN (Reason: Pain) Qty: 10 0RF
Referrals:
Kingsley Goetz MD [Family Provider, Family Practice]
Activity Restrictions/Additional Instructions:
Increase fluids
You may use Imodium to limit diarrhea if NECESSARY, but avoid using this excessively
Obtain stool specimens at your earliest convenience
Interventions
Interventions:
*Risk Screen - Suicide Last Done: 07/10/25 08:30
*General Assessment Last Done: 07/10/25 08:30
*Neglect/Abuse Screening Last Done: 07/10/25 08:30
*ED- Fall Risk Assessment Last Done: 07/10/25 15:21
*ED COVID-19 Vaccine History Last Done: 07/10/25 10:00
*ED Influenza Vaccine History Last Done: 07/10/25 10:00
*Nursing Disposition Last Done: 07/10/25 15:21
ED- Neurological Assessment Last Done: 07/10/25 10:00
ED Swallowing Screen Last Done: 07/10/25 12:59
Discharge Date and Time
Discharge Date/Time: 07/10/25 15:22
Print Language: UPPER SORBIAN
[2025-07-10] MEDS: LR 1000 IV (09:09)
[2025-07-10 09:10] VITALS: BP 92/52
[2025-07-10 09:18] LABS: Hematocrit 45.4 % (37.0-47.0); Hemoglobin 14.9 g/dL (12.0-16.0); Mean Corp Hgb Conc. 32.8 g/dL (33.0-37.0); Mean Corpuscular Volume 88.5 fL (81.0-99.0); Nucleated Red Blood Cells % 0 %; Platelet Count 265 10^3/uL (130-400); Red Cell Dist. Width 12.8 % (11.5-14.5)
[2025-07-10 09:42] LABS: ALT (SGPT) 18 U/L (0-35); AST (SGOT) 20 U/L (14-36); Albumin 4.2 g/dl (3.5-5.0); Alkaline Phosphatase 38 U/L (38-126); Blood Urea Nitrogen 9 mg/dl (7-17); Calcium 10.8 mg/dl (8.4-10.2); Carbon Dioxide 28 mmol/L (22-30); Chloride 104 mmol/L (98-107); Glucose 110 mg/dl (70-99); Lipase 195 U/L (23-300); Potassium 4.6 mmol/L (3.5-5.1); Sodium 139 mmol/L (135-145); Total Protein 6.5 g/dl (6.3-8.2); eGFR > 60.00
[2025-07-10 10:00] VITALS: BP 101/44; BMI 29.5
[2025-07-10 11:00] VITALS: BP 107/55
[2025-07-10 12:00] VITALS: BP 113/59
[2025-07-10 15:04] VITALS: BP 146/68
== END 2025-07-10 15:22 | disposition home or self-care (01) ==
LOC: EMR 08:27
PROVIDERS: Physician Assistant; EMERGENCY PHYSICIAN Emergency Medicine; FAMILY PHYSICIAN Student in an Organized Health Care Education/Training Program
DX: R19.7 Diarrhea, unspecified (principal); R42 Dizziness and giddiness; E86.1 Hypovolemia; E11.9 Type 2 diabetes mellitus without complications; I10 Essential (primary) hypertension; J44.89 Other specified chronic obstructive pulmonary disease; K21.9 Gastro-esophageal reflux disease without esophagitis; G50.0 Trigeminal neuralgia; Z79.84 Long term (current) use of oral hypoglycemic drugs; Z87.891 Personal history of nicotine dependence; Z85.110 Personal history of malignant carcinoid tumor of bronchus and lung; Z90.2 Acquired absence of lung [part of]; Z90.49 Acquired absence of other specified parts of digestive tract
CPT/HCPCS: 99284; 96360; 80053; 83690; 85025; 93005

== ENCOUNTER → 2025-07-12 14:23 | Outpatient (REF) | payer MEDICARE, SELFPAY | LOC: REG 14:23 | PROVIDERS: ATTENDING PHYSICIAN Physician Assistant; FAMILY PHYSICIAN Student in an Organized Health Care Education/Training Program | DX: Z09 Encounter for follow-up examination after completed treatment for conditions other than malignant neoplasm (principal) | CPT/HCPCS: 87045; 87046; 87324; 87427; 87449 ==

== ENCOUNTER → 2025-07-18 12:43 | Outpatient (REF) | payer MEDICARE, SELFPAY | LOC: RAD 12:43 | PROVIDERS: ATTENDING PHYSICIAN Student in an Organized Health Care Education/Training Program; FAMILY PHYSICIAN Student in an Organized Health Care Education/Training Program | DX: R06.02 Shortness of breath (principal) | CPT/HCPCS: 71046 ==

== ENCOUNTER → 2025-07-21 07:55 | Outpatient (REF) | payer MEDICARE, SELFPAY | LOC: MRI 3T 07:55 | PROVIDERS: ATTENDING PHYSICIAN Psychiatry & Neurology Neurology; FAMILY PHYSICIAN Student in an Organized Health Care Education/Training Program | DX: R51.9 Headache, unspecified (principal); R26.81 Unsteadiness on feet | CPT/HCPCS: 72141 ==

== ENCOUNTER → 2025-07-29 18:16 | Outpatient (REF) | payer MEDICARE, SELFPAY | LOC: MRI 18:16 | PROVIDERS: ATTENDING PHYSICIAN Psychiatry & Neurology Neurology; FAMILY PHYSICIAN Student in an Organized Health Care Education/Training Program | DX: R51.9 Headache, unspecified (principal); R26.81 Unsteadiness on feet | CPT/HCPCS: 72158; A9575 ==

== ENCOUNTER → 2025-08-19 08:49 | Outpatient (REF) | payer MEDICARE, SELFPAY | LOC: RAD 08:49 | PROVIDERS: ATTENDING PHYSICIAN Nurse Practitioner Family; FAMILY PHYSICIAN Student in an Organized Health Care Education/Training Program | DX: E83.52 Hypercalcemia (principal) | CPT/HCPCS: 78071; A9500 ==